=== PATIENT | female | born 1990 | race Caucasian/White ===

== ENCOUNTER 2016-10-23 08:44 | Outpatient (CLI) | payer MEDICAID ==
[2016-10-23 09:45] LABS: ABSOLUTE LYMPHOCYTES (AUTO) 1.5 10^3/uL (0.5-4.7); ABSOLUTE MONOCYTES (AUTO) 0.6 10^3/uL (0.1-1.4); ABSOLUTE NEUT (AUTO) 4.6 10^3/uL (1.7-8.2); BASOPHILS % (AUTO) 0.5 % (0-2); EOSINOPHILS % (AUTO) 0.7 % (0-6); HEMATOCRIT 37.2 % (36.0-47.0); HEMOGLOBIN 12.6 g/dL (12.0-15.5); HGB HCT DIFFERENCE 0.6; MEAN CORPUSCULAR HGB CONC 33.8 g/dL (32.0-36.0); MEAN CORPUSCULAR VOLUME 89 fl (80-97); RED BLOOD COUNT 4.19 10^6/uL (3.72-5.28); RED CELL DISTRIBUTION WIDTH 13.1 % (11.5-14.0); SEGMENTED NEUTROPHILS % (AUTO) 67.8 % (42-78); WHITE BLOOD COUNT 6.7 10^3/uL (4.0-10.5)
[2016-10-23 09:58] LABS: ALANINE AMINOTRANSFERASE 16 U/L (9-52); ALKALINE PHOSPHATASE 172 U/L (38-126); ANION GAP 9 (5-19); ASPARTATE AMINO TRANSFERASE 16 U/L (14-36); BILIRUBIN,TOTAL 0.5 mg/dL (0.2-1.3); BLOOD UREA NITROGEN 8 mg/dL (7-20); CALCIUM 9.4 mg/dL (8.4-10.2); CARBON DIOXIDE 23 mmol/L (22-30); CHLORIDE 105 mmol/L (98-107); CREATININE RESULT 0.75 mg/dL (0.52-1.25); GLUCOSE 74 mg/dL (75-110); LDH 422 U/L (313-618); POTASSIUM 4.2 mmol/L (3.6-5.0); SODIUM 137.4 mmol/L (137-145); TOTAL PROTEIN 7.5 g/dL (6.3-8.2); URIC ACID 5.8 mg/dL (2.5-6.2)
--- NOTE | 2016-10-23 10:01 | L&D Flow Sheet ---
LD Flowsheet Datetime Report Generated by CPN: 10/23/2016 10:00 Datetime: 10/23/2016 09:51 Vital Signs NBP Sys/Wen/Mean (mmHg): 127 (QS system process) : 93 (QS system process) : 105 (QS system process) Pulse: 64 (QS system process) Datetime: 10/23/2016 09:35 Vital Signs NBP Sys/Wen/Mean (mmHg): 130 (QS system process) : 82 (QS system process) : 102 (QS system process) Pulse: 59 (QS system process) Datetime: 10/23/2016 09:20 Vital Signs NBP Sys/Wen/Mean (mmHg): 126 (QS system process) : 77 (QS system process) : 97 (QS system process) Pulse: 60 (QS system process) Datetime: 10/23/2016 09:00 Pain Pain Scale: 0 (Bridger Antonieta, RN) Pain Presence: None/Denies (Bridger Antonieta, RN) Pain Type: N/A (Bridger Antonieta, RN) Vaginal Exam Membrane Status: Intact (Bridger Fung RN) Vaginal Bleeding: None (Bridger Fung RN) Maternal Assessment Level of Consciousness: Fully Conscious (Bridger Fung RN) Headache: Denies (Bridger Fung RN) Nausea/Vomiting: Hx of Nausea/Vomiting (Annotations: Pt states she threw up this morning, common occurance during duration of ) (Bridger Fung RN) RUQ Epigastric Pain: Denies (Bridger Fung RN)
[2016-10-23 10:39] LABS: APPEARANCE,URINE CLEAR; BILIRUBIN,URINE NEGATIVE (NEGATIVE); GLUCOSE, URINE NEGATIVE (NEGATIVE); KETONES,URINE NEGATIVE (NEGATIVE); LEUKOCYTE ESTERASE,URINE NEGATIVE (NEGATIVE); NITRITE,URINE NEGATIVE (NEGATIVE); PROTEIN,URINE NEGATIVE (NEGATIVE); URINE SPECIFIC GRAVITY 1.004; UROBILINOGEN,URINE NEGATIVE mg/dL (<2.0)
[2016-10-23 10:55] LABS: URINE BARBITURATES SCREEN NEGATIVE; URINE METHADONE SCREEN NEGATIVE; URINE OPIATES LOW NEGATIVE; URINE PHENCYCLIDINE SCREEN NEGATIVE
== END 2016-10-23 11:46 | disposition home or self-care (01) ==
LOC: LC 08:44
PROVIDERS: ATTEND Obstetrics & Gynecology
PROC: 4A1HXCZ Monitoring of Products of Conception, Cardiac Rate, External Approach (ICD-10-PCS; principal; 2016-10-23)
DX: O26.893 Other specified pregnancy related conditions, third trimester (principal); R11.2 Nausea with vomiting, unspecified; Z3A.39 39 weeks gestation of pregnancy
CPT/HCPCS: 36415; 59025; 80053; 80307; 81001; 83615; 84550; 85025

== ENCOUNTER 2016-11-03 08:38 | Inpatient (IN) | payer MEDICAID ==
[2016-11-05] MEDS ORDERED: OXYTOCIN/NORMAL SALINE 1,000 ML IV PRN (09:11)
[2016-11-05] MEDS ORDERED: RINGERS SOLUTION,LACTATED 300 ML IV ONE (09:11)
[2016-11-05] MEDS ORDERED: RINGERS SOLUTION,LACTATED 1,000 ML IV PRN (09:11)
--- NOTE | 2016-11-05 09:16 | Non Stress Test Report ---
Non Stress Test Datetime Report Generated by CPN: 11/05/2016 09:16 DEMOGRAPHIC EGA NST: 38.4 INDICATION Indication for Study: Gestational Hypertension VITAL SIGNS Temperature - NST: 97.6 RESP - NST: 18 MONITORING Monitor Explained: Monitor Explained; Test Explained; Patient Verbalized Understanding Time on Monitor: 10/23/2016 09:20 Time off Monitor: 10/23/2016 11:19 NST Duration: 119 NST INTERVENTIONS NST Interventions: PO Hydration; Reposition Patient Physician Notified NST: Janie Dalal, CNM BABY A: [id number] BABY A Movement : Present Contraction Frequency : Rare FHR Baseline : 130 Accelerations : 15X15 Decelerations : None Variability : Moderate 6-25bpm NST Review: Meets Criteria for Reactive NST NST Review and Verified By : Mason Umanzor RN NST Results: Reactive NST REPORT Report Trigger: Send Report
--- NOTE | 2016-11-05 10:00 | L&D Flow Sheet ---
LD Flowsheet Datetime Report Generated by CPN: 11/05/2016 10:00 Datetime: 11/05/2016 09:58 Vital Signs NBP Sys/Wen/Mean (mmHg): 108 (QS system process) : 92 (QS system process) : 97 (QS system process) Pulse: 87 (QS system process) Communication LaborFlag: Labor (QS system process) Datetime: 11/05/2016 09:43 Pain Pain Scale: 0 (Bridger Antonieta, RN) Pain Presence: None/Denies (Bridger Antonieta, RN) Pain Type: N/A (Bridger Antonieta, RN) Vaginal Exam Vaginal Bleeding: None (Bridger Nolanford, RN) Maternal Assessment Level of Consciousness: Fully Conscious (Bridger Antonieta, RN) Headache: Denies (Bridger Antonieta, RN) Nausea/Vomiting: Denies (Bridger Antonieta, RN) RUQ Epigastric Pain: Denies (Bridger Antonieta, RN) Communication LaborFlag: Labor (QS system process) Datetime: 11/05/2016 09:27 Vital Signs NBP Sys/Wen/Mean (mmHg): 125 (QS system process) : 76 (QS system process) : 95 (QS system process) Pulse: 76 (QS system process) Communication LaborFlag: Labor (QS system process)
[2016-11-05 10:24] LABS: APPEARANCE,URINE SLIGHTLY-CLOUDY; BILIRUBIN,URINE NEGATIVE (NEGATIVE); GLUCOSE, URINE NEGATIVE (NEGATIVE); KETONES,URINE NEGATIVE (NEGATIVE); LEUKOCYTE ESTERASE,URINE LARGE (NEGATIVE); NITRITE,URINE NEGATIVE (NEGATIVE); PROTEIN,URINE 30 mg/dL (NEGATIVE); URINE SPECIFIC GRAVITY 1.015; UROBILINOGEN,URINE NEGATIVE mg/dL (<2.0)
[2016-11-05 10:25] LABS: ABSOLUTE LYMPHOCYTES (AUTO) 1.3 10^3/uL (0.5-4.7); ABSOLUTE MONOCYTES (AUTO) 0.6 10^3/uL (0.1-1.4); ABSOLUTE NEUT (AUTO) 6.7 10^3/uL (1.7-8.2); BASOPHILS % (AUTO) 0.3 % (0-2); EOSINOPHILS % (AUTO) 0.4 % (0-6); HEMATOCRIT 35.2 % (36.0-47.0); HGB HCT DIFFERENCE 0.8; LYMPHOCYTES % (AUTO) 15.4 % (13-45); MEAN CORPUSCULAR HGB CONC 34.2 g/dL (32.0-36.0); MEAN CORPUSCULAR VOLUME 88 fl (80-97); MONOCYTES % (AUTO) 7.1 % (3-13); RED CELL DISTRIBUTION WIDTH 13.2 % (11.5-14.0); SEGMENTED NEUTROPHILS % (AUTO) 76.8 % (42-78); WHITE BLOOD COUNT 8.7 10^3/uL (4.0-10.5)
[2016-11-05] MEDS ORDERED: SUCCINYLCHOLINE CHLORIDE INJ 200 MG/10 ML VIAL ONE ×2 (10:25→22:17)
[2016-11-05] MEDS ORDERED: MISOPROSTOL 0.1 MG TABLET ONE ×2 (10:38→14:46)
[2016-11-05 10:48] LABS: URINE BARBITURATES SCREEN NEGATIVE; URINE METHADONE SCREEN NEGATIVE; URINE OPIATES LOW NEGATIVE; URINE PHENCYCLIDINE SCREEN NEGATIVE
[2016-11-05] MEDS ORDERED: MISOPROSTOL 0.1 MG TABLET PO ONE (11:00)
--- NOTE | 2016-11-05 12:00 | L&D Flow Sheet ---
LD Flowsheet Datetime Report Generated by CPN: 11/05/2016 12:00 Datetime: 11/05/2016 11:32 Patient Position/Activity: Right Tilt; Low Fowlers (Bridger Fung, LAKESHA) Datetime: 11/05/2016 11:30 Monitor Mode: External (Bridger Fung RN) Frequency (min): 1-5 (Bridger Fung RN) Quality: Mild (Bridegr Fung RN) Duration (sec): 50-90 (Bridger Antonieta, RN) Resting Tone (Palpate): Relaxed (Bridger Antonieta, RN) Monitor Mode: External US (Bridger Antonieta, RN) FHR Baseline Rate : 130 (Bridger Antonieta, RN) Variability: Minimal - Undetectable to <=5 bpm (Bridger Antonieta, RN) Variability: Moderate 6-25 bpm (Bridger Antonieta, RN) Accelerations: 15X15 (Bridger Antonieta, RN) Decelerations: None (Bridger Antonieta, RN) Datetime: 11/05/2016 11:00 Monitor Mode: External; Palpation (Bridger Antonieta, RN) Frequency (min): Irregular (Bridger Antonieta, RN) Quality: Mild (Bridger Antonieta, RN) Duration (sec): 60-120 (Bridger Antonieta, RN) Resting Tone (Palpate): Relaxed (Bridger Antonieta, RN) Monitor Mode: External US (Bridger Antonieta, RN) FHR Baseline Rate : 135 (Bridger Antonieta, RN) Variability: Moderate 6-25 bpm (Bridger Antonieta, RN) Accelerations: 15X15 (Bridger Antonieta, RN) Decelerations: None (Bridger Antonieta, RN) Datetime: 11/05/2016 10:58 I/O Interventions: Up to BR (Bridger Antonieta, RN) Datetime: 11/05/2016 10:57 NBP Sys/Wen/Mean (mmHg): 135 (QS system process) : 83 (QS system process) : 105 (QS system process) Pulse: 66 (QS system process) LaborFlag: Labor (QS system process) Datetime: 11/05/2016 10:47 Cervical Ripening Agents: Cytotec @ 50 mcg (Bridger Antonieta, RN) Medication Comments: Given PO (Bridgershanel Fung, RN) Datetime: 11/05/2016 10:30 Monitor Mode: External (Bridger Antonieta, RN) Frequency (min): Irregular (Bridger Antonieta, RN) Quality: Mild (Bridger Antonieta, RN) Duration (sec): 50-70 (Bridger Antonieta, RN) Resting Tone (Palpate): Relaxed (Bridger Antonieta, RN) Monitor Mode: External US (Bridger Antonieta, RN) FHR Baseline Rate : 140 (Bridger Antonieta, RN) FHR Baseline Changes: No Baseline Change (Bridger Antonieta, RN) Variability: Moderate 6-25 bpm (Bridger Antonieta, RN) Accelerations: 15X15 (Bridger Atnonieta, RN) Datetime: 11/05/2016 10:27 NBP Sys/Wen/Mean (mmHg): 132 (QS system process) : 88 (QS system process) : 106 (QS system process) Pulse: 68 (QS system process) LaborFlag: Labor (QS system process) Datetime: 11/05/2016 10:22 IV/Blood Work: IV Bolus Given ml @ 500; IV Infusing per Order (Bridger Fung RN) Datetime: 11/05/2016 10:20 Dilatation (cm): 1.5 (Bridger Fung RN) Effacement (%): 75 (Bridger Fung RN) Station: -1 (Bridger Fung RN) Exam by: LAKESHA Meng (Bridger Fung RN) Membrane Status: Intact (Bridger Fung RN) Vaginal Bleeding: None (Bridger Fung RN) Cervix, Consistency: Soft (Bridger Fung RN) Cervix, Position: Anterior (Bridger Fung RN) Datetime: 11/05/2016 10:00 Monitor Mode: External; Palpation (Bridger Fung RN) Monitor Mode: External (Bridger Fung RN) Frequency (min): Irregular (Bridger Fung RN) Quality: Mild (Bridger Fung RN) Duration (sec): 40-50 (Bridger Fung RN) Resting Tone (Palpate): Relaxed (Bridger Fung RN) IV/Blood Work: IV Started; IV Bolus Started (Bridger Fung RN)
--- NOTE | 2016-11-05 14:00 | L&D Flow Sheet ---
LD Flowsheet Datetime Report Generated by CPN: 11/05/2016 14:00 Datetime: 11/05/2016 13:30 Monitor Mode: External (Bridger Fung, RN) Quality: Mild (Bridger Fung, RN) Resting Tone (Palpate): Relaxed (Bridger Fung, RN) Contraction Comments: Unable to determine, RN adjusted TOCO (Bridger Fung, RN) Monitor Mode: External US (Bridger Fung, RN) FHR Baseline Rate : 135 (Bridger Fung, RN) Variability: Moderate 6-25 bpm (Bridger Fung, RN) Accelerations: 15X15 (Bridger Fung, RN) Datetime: 11/05/2016 13:00 Monitor Mode: External (Bridger Fung RN) Frequency (min): 1.5-5 (Bridger Fung, LAKESHA) Quality: Mild (Bridger Fung, RN) Duration (sec): 50-90 (Bridger Fung, RN) Resting Tone (Palpate): Relaxed (Bridger Fung RN) Monitor Mode: External US (Bridger Fung RN) FHR Baseline Rate : 135 (Bridger Fung, RN) Variability: Moderate 6-25 bpm (Bridger Fung, RN) Accelerations: 15X15 (Bridger Fung, RN) Datetime: 11/05/2016 12:30 Temperature (F): 98.0 (Bridger Fung RN) Temperature (C): 36.7 (QS system process) Temperature Route: Oral (Bridger Fung RN) Monitor Mode: External; Palpation (Bridger Fung RN) Quality: Mild (Bridger Fung RN) Resting Tone (Palpate): Relaxed (Bridger Fung, RN) Contraction Comments: Difficult to determine due to patient position while eating. RN at bedside, TOCO adjusted (Bridger Fung RN) Monitor Mode: External US (Bridger Fung RN) FHR Baseline Rate : 140 (Bridger Fung, RN) Variability: Moderate 6-25 bpm (Bridger Fung, RN) Accelerations: 15X15 (Bridger Fung, RN) Decelerations: None (Bridger Fung RN) Pain Presence: Intermittent (Bridger Fung RN) Pain Type: Cramping (Bridger Fung RN) Pain Location: Abdomen (Bridger Fung RN) Pain Relief Measures: Comfort Measures (Bridger Fung RN) Pain Coping: Talking Through Contractions (Bridger Fung RN) Comfort Measures: Family Support (Bridger Fung RN) LaborFlag: Labor (QS system process) Datetime: 11/05/2016 12:24 I/O Interventions: Up to BR (Bridger Fung RN) Datetime: 11/05/2016 12:11 Patient Care Comments: Meal Provided (Bridger Fung RN)
--- NOTE | 2016-11-05 16:01 | L&D Flow Sheet ---
LD Flowsheet Datetime Report Generated by CPN: 11/05/2016 16:00 Datetime: 11/05/2016 15:41 I/O Interventions: Up to BR (Bridger Fung RN) Datetime: 11/05/2016 15:00 Monitor Mode: External; Palpation (Bridger Fung RN) Frequency (min): Irregular (Bridger Fung RN) Quality: Mild (Bridger Fung RN) Duration (sec): 60-90 (Bridger Antonieta, RN) Resting Tone (Palpate): Relaxed (Bridger Antonieta, RN) Monitor Mode: External US (Bridger Fung, RN) FHR Baseline Rate : 140 (Bridger Antonieta, RN) Variability: Moderate 6-25 bpm (Bridger Antonieta, RN) Accelerations: 15X15 (Bridger Antonieta, RN) Datetime: 11/05/2016 14:50 Cervical Ripening Agents: Cytotec @ 0.05 mcg given PO (Bridger Fung, RN) Datetime: 11/05/2016 14:30 Monitor Mode: External (Bridger Antonieta, RN) Frequency (min): 3-5 (Bridger Antonieta, RN) Quality: Mild (Bridger Antonieta, RN) Duration (sec): 60-90 (Bridger Antonieta, RN) Resting Tone (Palpate): Relaxed (Bridger Antonieta, RN) Monitor Mode: External US (Bridger Antonieta, RN) FHR Baseline Rate : 140 (Bridger Antonieta, RN) Variability: Moderate 6-25 bpm (Bridger Antonieta, RN) Accelerations: 15X15 (Bridger Antonieta, RN) Decelerations: None (Bridger Fung RN) Datetime: 11/05/2016 14:00 Monitor Mode: External (Bridger Fung RN) Frequency (min): Irregular (Bridger Fung RN) Quality: Mild (Bridger Fung RN) Duration (sec): 60-90 (Bridger Fung RN) Resting Tone (Palpate): Relaxed (Bridger Fung RN) Monitor Mode: External US (Bridger Fung RN) FHR Baseline Rate : 130 (Bridger Fung RN) Variability: Moderate 6-25 bpm (Bridger Fung RN) Accelerations: 15X15 (Bridger Fung RN) Decelerations: None (Bridger Fung RN)
--- NOTE | 2016-11-05 18:01 | L&D Flow Sheet ---
LD Flowsheet Datetime Report Generated by CPN: 11/05/2016 18:00 Datetime: 11/05/2016 17:30 Monitor Mode: External; Palpation (Bridger Fung RN) Monitor Interventions for UA: [place] Adjusted (Bridger Fung RN) Frequency (min): 2-4 (Bridger Fung RN) Quality: Mild/Moderate (Bridger Fung RN) Duration (sec): 40-60 (Bridger Fung RN) Duration Criteria: Less than Two 120 Second Contractions (Bridger Fung RN) Pattern: Normal: <= 5 Contractions in 10 Minutes (Bridger Fung RN) Resting Tone (Palpate): Relaxed (Bridger Fung RN) Monitor Mode: External US; Auscultation (Bridger Fung RN) FHR Baseline Rate : 140 (Bridger Fung RN) FHR Baseline Changes: No Baseline Change (Bridger Fung RN) Variability: Moderate 6-25 bpm (Bridger Fung RN) Accelerations: 15X15 (Bridger Fung RN) Decelerations: None (Bridger Fung RN) Datetime: 11/05/2016 17:14 Pain Presence: Intermittent (Bridger Fung RN) Pain Type: Contraction (Bridger Fung RN) Pain Location: Abdomen (Bridger Fung RN) Pain Coping: Breathing Through Contractions (Bridger Fung RN) Comfort Measures: Breathing/Relaxation; Family Support (Bridger Fung RN) I/O Interventions: Ice Chips Given; Clear Liquids Given (Bridger Fung RN) LaborFlag: Labor (QS system process) Datetime: 11/05/2016 17:00 Monitor Mode: External; Palpation (Bridger Fung RN) Monitor Interventions for UA: [place] Adjusted (Bridger Fung RN) Frequency (min): 2-3 (Bridger Fung RN) Quality: Mild/Moderate (Bridger Fung RN) Duration (sec): 40-60 (Bridger Fung RN) Duration Criteria: Less than Two 120 Second Contractions (Bridger Fung RN) Pattern: Normal: <= 5 Contractions in 10 Minutes (Bridger Fung RN) Resting Tone (Palpate): Relaxed (Bridger Antonieta, RN) Monitor Mode: External US; Auscultation (Bridger Antonieta, RN) FHR Baseline Rate : 140 (Bridger Antonieta, RN) FHR Baseline Changes: No Baseline Change (Bridger Antonieta, RN) Variability: Moderate 6-25 bpm (Bridger Antonieta, RN) Accelerations: 15X15 (Bridger Antonieta, RN) Decelerations: None (Bridger Antonieta, RN) Datetime: 11/05/2016 16:59 Monitor Mode: External US (Bridger Antonieta, RN) FHR Baseline Rate : 135 (Bridger Antonieta, RN) Variability: Moderate 6-25 bpm (Bridger Antonieta, RN) Accelerations: 15X15 (Bridger Antonieta, RN) Decelerations: None (Bridger Antonieta, RN) Datetime: 11/05/2016 16:30 IV/Blood Work: New IV Bag Hung (Bridger Fung, RN) Patient Care Comments: New bag of LR hung at 125mL/hr (Bridger Fung, RN) Datetime: 11/05/2016 16:28 Monitor Mode: External US (Bridger Antonieta, RN) FHR Baseline Rate : 140 (Bridger Antonieta, RN) Variability: Moderate 6-25 bpm (Bridger Antonieta, RN) Accelerations: 10X10 (Bridger Antonieta, RN) Decelerations: None (Bridger Antonieta, RN) Datetime: 11/05/2016 16:21 I/O Interventions: Up to BR (Bridger Antonieta, RN) Datetime: 11/05/2016 16:14 Membrane Status: Ruptured (Bridger Antonieta, RN) Membranes Ruptured Date/Time: 11/05/2016 16:14 (ILSA Amaya) Membranes Rupture Method: Spontaneous (Bridger Fung RN) Amniotic Fluid Color: Clear (Bridger Fung RN) Amniotic Fluid Amount: Small (Bridger Fung RN) Amniotic Fluid Odor: Normal (Bridger Fung RN)
[2016-11-05] MEDS ORDERED: OXYTOCIN/NORMAL SALINE 20 UNIT/1,000 ML RTUINJ ONE (19:04)
[2016-11-05] MEDS ORDERED: LIDOCAINE 1% INJ-PF (10 MG/ML) 30 ML SDV ONE (19:04)
[2016-11-05] MEDS ORDERED: MISOPROSTOL 0.2 MG TABLET ONE (19:04)
--- NOTE | 2016-11-05 20:00 | L&D Flow Sheet ---
LD Flowsheet Datetime Report Generated by CPN: 11/05/2016 20:00 Datetime: 11/05/2016 19:30 Level of Consciousness: Fully Conscious (Bernadine Jaspreetichiello, RN) DTR's/Clonus: DTRs 2+; No Clonus (Bernadine Errichiello, RN) Headache: Denies (Bernadine Jaspreetichiello, RN) Breath Sounds, Left: Clear and Equal (Bernadine Jaspreetichiello, RN) Breath Sounds, Right: Clear and Equal (Bernadine Errichiello, RN) Nausea/Vomiting: Denies (Bernadine Errichiello, RN) RUQ Epigastric Pain: Denies (Bernadine Jaspreetichiello, RN) Datetime: 11/05/2016 19:15 Stage of : Recovery (Bernadine Errichiello, RN) Respirations: 16 (Bernadine Errichiello, RN) Temperature Route: Oral (Bernadine Errichiello, RN) Datetime: 11/05/2016 19:11 Stage of : Recovery (Bernadine Errichiello, RN) Datetime: 11/05/2016 19:06 Pushing Progress: with Pushing (Marcus Heather, RN) Datetime: 11/05/2016 19:05 Pushing: Coached on Pushing; Urge to Push (Marcus Romero, RN) Pushing Position: Pushing with Contractions; Pushing Lithotomy (Marcus Richardsont, RN) Pushing Progress: Pushing Effectively with Contractions (Marcus Richardsont, RN) Datetime: 11/05/2016 19:01 Preparation for Delivery: Perineal Prep Done; Setup for Delivery (Marcus Romero, RN) Communication Comments: Dr Ta at bedside (Marcus Heather, RN) Datetime: 11/05/2016 19:00 Monitor Mode: External (ILSA Amaya) Frequency (min): 1.5-3 (ILSA Amaya) Quality: Moderate to Strong (ILSA Amaya) Duration (sec): 60-90 (Betty Roosevelt, RNC) Duration Criteria: Less than Two 120 Second Contractions (Betty Albert, RNC) Pattern: Normal: <= 5 Contractions in 10 Minutes (Betty Albert, RNC) Resting Tone (Palpate): Relaxed (Betty Albert, RNC) Monitor Mode: External US (Betty Albert, RNC) FHR Baseline Rate : 145 (Betty Albert, RNC) Variability: Moderate 6-25 bpm (Betty Albert, RNC) Accelerations: 15X15 (Betty Albert, RNC) Decelerations: None (Betty Albert, RNC) Dilatation (cm): 10.0 (Marcus Romero, RN) Effacement (%): 100 (Marcus Romero RN) Station: 2 (Marcus Romero RN) Exam by: Noé RN (Marcus Romero RN) Datetime: 11/05/2016 18:50 Comments: RN at bedside adjusting monitor. (Bridger Fung RN) Datetime: 11/05/2016 18:44 Medication Comments: Recieved verbal order from Dr. Ta for epidural (Bridger Fung, LAKESHA) Datetime: 11/05/2016 18:30 Temperature (F): 99.0 (Bridger Fung, LAKESHA) Temperature (C): 37.2 (QS system process) Temperature Route: Oral (Bridger Fung, LAKESHA) Monitor Mode: External; Palpation (Betty Albert, RNC) Frequency (min): 1.5-3 (Betty Albert, RNC) Quality: Mild/Moderate (Betty Albert, RNC) Duration (sec): 60-90 (Betty Roosevelt, RNC) Duration Criteria: Less than Two 120 Second Contractions (Betty Roosevelt, RNC) Pattern: Normal: <= 5 Contractions in 10 Minutes (Betty Roosevelt, RNC) Resting Tone (Palpate): Relaxed (Betty Roosevelt, RNC) Monitor Mode: External US (Betty Albert, RNC) FHR Baseline Rate : 135 (Betty Roosevelt, RNC) Variability: Moderate 6-25 bpm (Betty Roosevelt, RNC) Accelerations: 15X15 (Betty Roosevelt, RNC) Decelerations: None (Betty Roosevelt, RNC) LaborFlag: Labor (QS system process) Datetime: 11/05/2016 18:03 Monitor Interventions for FHR: Ultrasound Adjusted (Mikki Rowe RN) Patient Position/Activity: Birthing Ball (Mikki Rowe RN) Communication: RN at Bedside (Mikki Rowe RN) Datetime: 11/05/2016 18:00 Monitor Mode: External; Palpation (Shirley Camp, RNC) Monitor Interventions for UA: [place] Adjusted (Shirley Camp, RNC) Frequency (min): 2-3 (Shirley Camp, RNC) Quality: Mild/Moderate (Shirley Camp, RNC) Duration (sec): 60-80 (Shirley Camp, RNC) Duration Criteria: Less than Two 120 Second Contractions (Shirley Camp, RNC) Pattern: Normal: <= 5 Contractions in 10 Minutes (Shirley Camp, RNC) Resting Tone (Palpate): Relaxed (Shirley Camp, RNC) Monitor Mode: External US; Auscultation (Shirley Camp, RNC) FHR Baseline Rate : 145 (Shirley Camp, RNC) FHR Baseline Changes: No Baseline Change (Shirley Camp, RNC) Variability: Moderate 6-25 bpm (Shirley Camp, RNC) Decelerations: None (Shirley Camp, RNC)
[2016-11-05] MEDS ORDERED: ACETAMINOPHEN WITH CODEINE #3 TABLET ONE (20:53)
[2016-11-05] MEDS ORDERED: IBUPROFEN 800 MG TABLET ONE (20:54)
[2016-11-05] MEDS ORDERED: METHYLERGONOVINE MALEATE INJ/PF 0.2 MG/1 ML AMPULE ONE (21:24)
[2016-11-05] MEDS ORDERED: MORPHINE SULFATE 10 MG/ML INJ ONE (21:58)
--- NOTE | 2016-11-05 22:07 | Delivery Summary ---
Del Sum A-C Datetime Report Generated by CPN: 11/05/2016 22:06 ADMISSION DATA Chief Complaint: Scheduled Induction of Labor Indication for Induction: Post Dates Admission Impression: Term, Intrauterine ; No Active Labor; Intact Membranes DELIVERY PERSONNEL Delivery Doctor:: Gulshan Ta, DO Labor and Delivery Nurse:: Bridger Fung RNdrum drier operator Nurse:: Betty Ablert RN Nursery Nurse:: Familia Umanzor RN Narrow Fabric Calenderer/SOLVENT PLANT OPERATOR: Guan[place]ito [place]amo CNA Narrow Fabric Calenderer/SOLVENT PLANT OPERATOR: Isaura Ben, [facility] Additional Personnel: : Angela Guerra, RN MATERNAL INFORMATION Delivery Anesthesia: None Medications After Delivery: Pitocin Bolus-Please Comment Meds After Delivery Comment: Pitocin 20 units in 1000ml nss open for bolus Estimated Blood Loss (ml): 300 Maternal Complications: Precipitous Labor (<3hrs) Provider Comments: of viable female in LANI position Placentra delievered spontaneous and intact with 3v cord Fundus firm LABOR SUMMARY EDC: 10/29/2016 00:00 No. Babies in Womb: 1 Attempted: No Labor Anesthesia: None LABOR INFORMATION Reason for Induction: Post Dates Onset of Labor: 11/05/2016 16:14 Complete Dilatation: 11/05/2016 19:00 Cervical Ripening Agents: Cytotec @ (Annotations: 50) Oxytocin: N/A Group B Beta Strep: Neg Steroids Given: None Reason Steroids Not Administered: Not Applicable MEMBRANES Membranes Rupture Method: Spontaneous Rupture of Membranes: 11/05/2016 16:14 Length of Rupture (hr): 2.92 Amniotic Fluid Color: Clear Amniotic Fluid Amount: Small Amniotic Fluid Odor: Normal STAGES OF LABOR Stage 1 hr: 2 Stage 1 min: 46 Stage 2 hr: 0 Stage 2 min: 9 Stage 3 hr: 0 Stage 3 min: 2 Total Time in Labor hr: 2 Total Time in Labor min: 57 VAGINAL DELIVERY Episiotomy: None Laceration Extension: Third Degree Laceration Type: Periurethral Laceration Repair: Yes Laceration Repair Note: b/l periurethral lacs repaired with 2-0 chromic in usual fashion with good hemostasis Sponge Count Correct: Yes Sharps Count Correct: Yes CSECTION DELIVERY Primary Indication: N/A Secondary Indication: N/A CSection Incidence: N/A Labor: N/A Elective: N/A CSection Incision: N/A BABY A INFORMATION Infant Delivery Date/Time: 11/05/2016 19:09 Method of Delivery: Vaginal Born in Route : No : N/A Forceps: N/A Vacuum Extraction: N/A Shoulder Dystocia : No PRESENTATION/POSITION BABY A Presentation: Cephalic Cephalic Presentation: Vertex Vertex Position: Left Occipital Anterior Breech Presentation: N/A PLACENTA INFORMATION BABY A Placenta Delivery Time : 11/05/2016 19:11 Placenta Method of Delivery: Spontaneous Placenta Status: Delivered SCORES BABY A Heart Rate 1 min: >100 bpm Resp Effort 1 min: Good Cry Reflex Irritability 1 min: Cough or Sneeze or Pulls Away Muscle Tone 1 min: Active Motion Color 1 min: Body [place], Extremities Blue Resuscitation Effort 1 min: Tactile Stimulation SCORE 1 MIN: 9 Heart Rate 5 min: >100 bpm Resp Effort 5 min: Good Cry Reflex Irritability 5 min: Cough or Sneeze or Pulls Away Muscle Tone 5 min: Active Motion Color 5 min: Body [place], Extremities Blue Resuscitation Effort 5 min: N/A SCORE 5 MIN: 9 Resuscitation Effort 10 min: N/A INFANT INFORMATION BABY A Gestational Age at Delivery: 41.0 Gestational Status: Late Term- 41- 41.6 Weeks Outcome : Liveborn Condition : Stable Infant Sex: Female IDENTIFICATION BABY A Verification Date/Time: 11/05/2016 19:16 ID Band Number: [id number] Mother's Name Verified: Yes Infant RN Verifying Infant: Shirley Camp RNC Additional Verifying Personnel: D Lori US WEIGHT/LENGTH BABY A Infant Birthweight (gm): 3005 Weight (lb): 6 Weight (oz): 10 Length (in): 19.00 Infant Length (cm): 48.26 CORD INFORMATION BABY A No. Cord Vessels: 3 Nuchal Cord : N/A Cord Blood Taken: Yes-For Eval (Mom's Blood Type - or O+) Suction: Mouth; Nose ASSESSMENT BABY A Complications: None Physical Findings at Delivery: Within Normal Limits Infant Respirations: Appears Normal Skin to Skin: Yes Shank Pinner/ALS Called : No Care By: Familia Umanzor RN Transferred To: Remains with Mother BABY B INFORMATION : N/A SIGNATURES Signature: with User ID: [email or web address]
[2016-11-05] MEDS ORDERED: CEFAZOLIN 2 GM/D5W RTU 2 GM/50 ML RTUPB IV ONE (22:15)
[2016-11-05] MEDS ORDERED: CITRIC ACID/SODIUM CITRATE ORAL SOLN 15 ML UDCUP ONE (22:15)
[2016-11-05] MEDS ORDERED: FENTANYL CITRATE INJ/PF 100 MCG/2 ML AMPUL ONE (22:17)
[2016-11-05] MEDS ORDERED: PROPOFOL INJ 200 MG/20 ML VIAL IV ONE (22:17)
[2016-11-05] MEDS ORDERED: MIDAZOLAM 2 MG/2 ML INJ ONE (22:23)
[2016-11-05] MEDS ORDERED: CITRIC ACID/SODIUM CITRATE ORAL SOLN 15 ML UDCUP PO ONE (22:34)
[2016-11-06] MEDS ORDERED: DIPHENHYDRAMINE HCL 25 MG CAPSULE PO PRN (00:47)
[2016-11-06] MEDS ORDERED: NA PHOS,M-B/NA PHOS,DI-BA (ADULT) 133 ML ENEMA PR PRN (00:47)
[2016-11-06] MEDS ORDERED: ACETAMINOPHEN WITH CODEINE #3 TABLET PO PRN ×2 (00:47)
[2016-11-06] MEDS ORDERED: BENZOCAINE/MENTHOL AEROSOL SPRAY 56 ML TOP PRN (00:47)
[2016-11-06] MEDS ORDERED: DIBUCAINE 1% OINTMENT 28 GM TP PRN (00:47)
[2016-11-06] MEDS ORDERED: GLYCERIN/WITCH HAZEL LEAF 1 EACH MED..PAD TP PRN (00:47)
[2016-11-06] MEDS ORDERED: ACETAMINOPHEN 650 MG SUPP.RECT PR PRN (00:47)
[2016-11-06] MEDS ORDERED: MEASLES,MUMPS&RUBELLA VACC/PF 0.5 ML VIAL SUBCUT PRN (00:47)
[2016-11-06] MEDS ORDERED: PROMETHAZINE HCL 25 MG SUPP.RECT PR PRN (00:47)
[2016-11-06] MEDS ORDERED: PROMETHAZINE HCL 25 MG TABLET PO PRN (00:47)
[2016-11-06] MEDS ORDERED: PROMETHAZINE HCL INJ 25 MG/1 ML VIAL IV PRN (00:47)
[2016-11-06] MEDS ORDERED: PSEUDOEPHEDRINE HCL 30 MG TABLET PO PRN (00:47)
[2016-11-06] MEDS ORDERED: MAGNESIUM HYDROXIDE SUSP 30 ML UDCUP PO PRN (00:47)
[2016-11-06] MEDS ORDERED: ZOLPIDEM TARTRATE 5 MG TABLET PO PRN (00:47)
[2016-11-06] MEDS ORDERED: DIPH/PERTUSS(ACELL)/TETANUS VAC/PF 0.5 ML SYR (>=10YO) IM PRN (00:47)
--- NOTE | 2016-11-06 01:32 | Admission Physical ---
Datetime Report Generated by CPN: 11/06/2016 01:31 CURRENT ADMISSION Chief Complaint: Scheduled Induction of Labor Indication for Induction: Post Dates Admit Plan: Admit to Unit; Initiate Labor Induction Protocol ALLERGIES Medication Allergies: No Medication Allergies: No Known Allergies (03/10/2016) Latex: No Latex Allergies Food Allergies: None Environmental Allergies: None OBSTETRICAL HISTORY EDC: 10/29/2016 00:00 : 1 Para: 0 Para: 0 Term: 0 : 0 SAB: 0 IAB: 0 Ectopic: 0 Livin Cesareans: 0 VBACs: 0 Multiple Births: 0 Gestational Diabetes: No Rh Sensitization: Unknown Incompetent Cervix: No IAN: Unknown Infertility: No ART Treatment: No Uterine Anomaly: Unknown IUGR: No Hx Previous C/S: Unknown Macrosomia: No Hx Loss/Stillborn: No PIH: Unknown Hx : Unknown Placenta Previa/Abruption: Unknown Depression/PP Depression: No PTL/PROM: Unknown Post Hemorrhage: Unknown Current Procedures: Ultrasound Obstetrical History Comments: patient sent from office for pre-eclampsia work up SEE RECORDS Alcohol: No Alcohol Frequency: Occasional Advised to Stop: Yes Marijuana : No Cocaine: No Other Illicit Drugs: No Cigarettes: Former Smoker. [id number] MEDICAL HISTORY Diabetes: No Blood Transfusion: No Pulmonary Disease (Asthma, TB): No Breast Disease: No Hypertension: No Audit Intern Surgery: No Heart Disease: No Hosp/Surgery: Yes Autoimmune Disorder: No Anesthetic Complications: No Kidney Disease: No Abnormal Pap Smear: No Neuro/Epilepsy: No Psychiatric Disorders: No Other Medical Diseases: No Hepatitis/Liver Disease: No Significant Family History: No Varicosities/Phlebitis: No Trauma/Violence : No Thyroid Dysfunction: No Medical History Comments: Removal of lesions on legs, age 13 INFECTIOUS HISTORY Gonorrhea: No Genital Herpes: No Chlamydia: No Tuberculosis: No Syphilis: No Hepatitis: No HIV/AIDS Exposure: No Rash or Viral Illness: No HPV: No PHYSICAL EXAM General: Normal HEENT: Normal Neurologic: Normal Thyroid: Deferred Heart: Normal Lungs: Normal Breast: Deferred Back: Normal Abdomen: Normal Genitourinary Exam: Normal Extremities: Normal DTRs: Normal Pelvic Type: Adequate Vital Signs: Reviewed; Within Normal Limits VAGINAL EXAM Dilatation: 1 Effacement: 75 Station: -1 MEMBRANES Membranes: Intact FETUS A EGA: 41.0 Monitoring: External US FHR- Baseline: 140 Variability: Moderate 6-25bpm Accelerations: 15X15 Decelerations: None FHR Category: Category I PLANS FOR LABOR AND DELIVERY Labor and Delivery: None Pain Management: Epidural Feeding Preference: Breast Benefit of Breast Feed Discussed: Yes Circumcision: N/A INFORMED CONSENT Signature: with User ID: [email or web address]
[2016-11-06] MEDS ORDERED: CEFAZOLIN 2 GM/D5W RTU 2 GM/50 ML RTUPB IV SCH ×2 (02:00→06:00)
[2016-11-06] MEDS: IBUPROFEN 800 MG TABLET PO SCH ×3 (05:20→21:31)
[2016-11-06] MEDS ORDERED: RINGERS SOLUTION,LACTATED 500 ML IV ONE (07:00)
--- NOTE | 2016-11-06 07:01 | L&D Flow Sheet ---
LD Flowsheet Datetime Report Generated by CPN: 11/06/2016 07:00 Datetime: 11/06/2016 00:18 NBP Sys/Wen/Mean (mmHg): 128 (QS system process) : 73 (QS system process) : 94 (QS system process) Pulse: 75 (QS system process) Datetime: 11/06/2016 00:17 Pulse: 78 (QS system process) SpO2 (%): 100 (QS system process) Datetime: 11/06/2016 00:12 Pulse: 74 (QS system process) SpO2 (%): 100 (QS system process) Datetime: 11/06/2016 00:07 Pulse: 80 (QS system process) SpO2 (%): 98 (QS system process) Datetime: 11/06/2016 00:05 NBP Sys/Wen/Mean (mmHg): 129 (QS system process) : 76 (QS system process) : 97 (QS system process) Pulse: 76 (QS system process) Datetime: 11/06/2016 00:02 Pulse: 85 (QS system process) SpO2 (%): 99 (QS system process) Datetime: 11/05/2016 23:57 Pulse: 73 (QS system process) SpO2 (%): 100 (QS system process) Datetime: 11/05/2016 23:52 Pulse: 88 (QS system process) SpO2 (%): 100 (QS system process) Datetime: 11/05/2016 23:50 NBP Sys/Wen/Mean (mmHg): 127 (QS system process) : 76 (QS system process) : 95 (QS system process) Pulse: 72 (QS system process) Datetime: 11/05/2016 23:47 Pulse: 78 (QS system process) SpO2 (%): 97 (QS system process) Datetime: 11/05/2016 23:42 Pulse: 76 (QS system process) SpO2 (%): 98 (QS system process) Datetime: 11/05/2016 23:37 Pulse: 76 (QS system process) SpO2 (%): 97 (QS system process) Datetime: 11/05/2016 23:35 NBP Sys/Wen/Mean (mmHg): 124 (QS system process) : 74 (QS system process) : 93 (QS system process) Pulse: 81 (QS system process) Respirations: 18 (Bernadine Nagel RN) Temperature (F): 98.9 (Bernadine Nagel RN) Temperature (C): 37.2 (QS system process) Temperature Route: Oral (Bernadine Nagel RN) Pain Scale: 1 (Bernadine Nagel RN) Pain Location: Perineum (Bernadine Nagel RN) Pain Assessment Comments: Pt states is just basically sore in perineal area. (Bernadine Nagel RN) Datetime: 11/05/2016 23:32 Pulse: 79 (QS system process) SpO2 (%): 97 (QS system process) Datetime: 11/05/2016 23:27 Pulse: 79 (QS system process) SpO2 (%): 97 (QS system process) Datetime: 11/05/2016 23:22 Pulse: 108 (QS system process) SpO2 (%): 97 (QS system process) Datetime: 11/05/2016 23:19 NBP Sys/Wen/Mean (mmHg): 125 (QS system process) : 73 (QS system process) : 94 (QS system process) Pulse: 80 (QS system process) Datetime: 11/05/2016 23:18 Stage of : Recovery (Bernadine Nagel RN) Temperature (F): 98.4 (Bernadine Nagel RN) Temperature (C): 36.9 (QS system process) Datetime: 11/05/2016 23:17 Stage of : Recovery (Bernadine Nagel RN) Pulse: 98 (QS system process) SpO2 (%): 99 (QS system process) Temperature (F): 98.9 (Bernadine Nagel RN) Temperature (C): 37.2 (QS system process) Pain Scale: 0 (Bernadine Nagel RN) Pain Presence: None/Denies (Bernadine Errichiello, RN) Pain Type: N/A (Bernadine Jaspreetichiello, RN) Datetime: 11/05/2016 21:30 Stage of : Recovery (Bernadine Oviedoello, RN) Respirations: 16 (Bernadine Jaspreetichiello, RN) Pain Scale: 0 (Bernadine Errichiello, RN) Pain Presence: None/Denies (Bernadine Errichiello, RN) Pain Type: N/A (Bernadine Errichiello, RN) Datetime: 11/05/2016 21:15 Stage of : Recovery (Bernadine Jaspreetichiello, RN) Pain Scale: 0 (Bernadine Errichiello, RN) Pain Presence: None/Denies (Bernadine Errichiello, RN) Pain Type: N/A (Bernadine Errichiello, RN) Datetime: 11/05/2016 21:07 NBP Sys/Wen/Mean (mmHg): 128 (QS system process) : 75 (QS system process) : 95 (QS system process) Pulse: 80 (QS system process) Datetime: 11/05/2016 21:00 Stage of : Recovery (Bernadine Nagel RN) Pain Scale: 3 (Bernadine Nagel RN) Pain Presence: Intermittent (Bernadine Nagel RN) Pain Type: Ache (Bernadine Nagel RN) Pain Location: Abdomen (Bernadine Nagel RN) Pain Goal: 1 (Bernadine Nagel RN) Datetime: 11/05/2016 20:51 NBP Sys/Wen/Mean (mmHg): 120 (QS system process) : 62 (QS system process) : 86 (QS system process) Pulse: 84 (QS system process) Datetime: 11/05/2016 20:45 Stage of : Recovery (Bernadine Nagel RN) Pain Scale: 0 (Bernadine Nagel RN) Pain Presence: None/Denies (Bernadine Nagel RN) Pain Type: N/A (Bernadine Nagel RN) Datetime: 11/05/2016 20:36 NBP Sys/Wen/Mean (mmHg): 123 (QS system process) : 75 (QS system process) : 94 (QS system process) Pulse: 73 (QS system process) Datetime: 11/05/2016 20:30 Stage of : Recovery (Bernadine Nagel RN) Pain Scale: 0 (Bernadine Nagel RN) Pain Presence: None/Denies (Bernadine Nagel RN) Pain Type: N/A (Bernadine Nagel RN) Datetime: 11/05/2016 20:21 NBP Sys/Wen/Mean (mmHg): 122 (QS system process) : 77 (QS system process) : 95 (QS system process) Pulse: 84 (QS system process) Datetime: 11/05/2016 20:15 Stage of : Recovery (Bernadine Nagel RN) Pain Scale: 0 (Bernadine Nagel RN) Pain Presence: None/Denies (Bernadine Nagel RN) Pain Type: N/A (Bernadine Errichiello, RN) Datetime: 11/05/2016 20:00 Stage of : Recovery (Bernadine Jaspreetichiello, RN) Pain Scale: 0 (Bernadine Jaspreetichiello, RN) Pain Presence: None/Denies (Bernadine Errichiello, RN) Pain Type: N/A (Bernadine Errichiello, RN) Datetime: 11/05/2016 19:45 Stage of : Recovery (Bernadine Errichiello, RN) Respirations: 16 (Bernadine Errichiello, RN) Pain Scale: 0 (Bernadine Errichiello, RN) Pain Presence: None/Denies (Bernadine Errichiello, RN) Pain Type: N/A (Bernadine Errichiello, RN) Datetime: 11/05/2016 19:30 Stage of : Recovery (Bernadine Nagel RN) Respirations: 16 (Bernadine Nagel RN) Pain Scale: 0 (Bernadine Nagel RN) Pain Presence: None/Denies (Bernadine Nagel RN) Pain Type: N/A (Bernadine Nagel, RN) Level of Consciousness: Fully Conscious (Bernadine Nagel RN) DTR's/Clonus: DTRs 2+; No Clonus (Bernadine Nagel RN) Headache: Denies (Bernadine Nagel RN) Breath Sounds, Left: Clear and Equal (Bernadine Nagel RN) Breath Sounds, Right: Clear and Equal (Bernadine Nagel RN) Nausea/Vomiting: Denies (Bernadine Nagel RN) RUQ Epigastric Pain: Denies (Bernadine Nagel, RN) Datetime: 11/05/2016 19:15 Stage of : Recovery (Bernadine Nagel RN) Respirations: 16 (Bernadine Nagel RN) Temperature Route: Oral (Bernadine Nagel, RN) Pain Scale: 0 (Bernadine Nagel RN) Pain Presence: None/Denies (Bernadine Nagel, RN) Pain Type: N/A (Bernadine Shona, RN) Datetime: 11/05/2016 19:11 Stage of : Recovery (Bernadine Errichiello, RN) Datetime: 11/05/2016 19:06 Pushing Progress: with Pushing (Marcus Richardsont, RN) Datetime: 11/05/2016 19:05 Pushing: Coached on Pushing; Urge to Push (Marcus Romero RN) Pushing Position: Pushing with Contractions; Pushing Lithotomy (Marcus Romero RN) Pushing Progress: Pushing Effectively with Contractions (Marcus Romero, RN) Datetime: 11/05/2016 19:01 Preparation for Delivery: Perineal Prep Done; Setup for Delivery (Marcus Romero RN) Communication Comments: Dr Ta at bedside (Marcus Romero RN) Datetime: 11/05/2016 19:00 Monitor Mode: External (ILSA Amaya) Frequency (min): 1.5-3 (ILSA Amaya) Quality: Moderate to Strong (ILSA Amaya) Duration (sec): 60-90 (ILSA Amaya) Duration Criteria: Less than Two 120 Second Contractions (ILSA Amaya) Pattern: Normal: <= 5 Contractions in 10 Minutes (ILSA Amaya) Resting Tone (Palpate): Relaxed (ILSA Amaya) Monitor Mode: External US (ILSA Amaya) FHR Baseline Rate : 145 (ILSA Amaya) Variability: Moderate 6-25 bpm (Betty Roosevelt, RNC) Accelerations: 15X15 (Betty Albert RNC) Decelerations: None (ILSA Amaya) Dilatation (cm): 10.0 (Marcus Romero RN) Effacement (%): 100 (Marcus Romero RN) Station: 2 (Marcus Romero RN) Exam by: Noé CROWDER (Marcus Romero RN)
[2016-11-06 07:29] LABS: HGB HCT DIFFERENCE 0.2; MEAN CORPUSCULAR HEMOGLOBIN 29.9 pg (27.0-33.4); MEAN CORPUSCULAR HGB CONC 33.6 g/dL (32.0-36.0); MEAN CORPUSCULAR VOLUME 89 fl (80-97); RED BLOOD COUNT 2.47 10^6/uL (3.72-5.28); RED CELL DISTRIBUTION WIDTH 13.2 % (11.5-14.0)
[2016-11-06 07:40] LABS: HEMOGLOBIN 7.4 g/dL (12.0-15.5)
[2016-11-06] MEDS: FERROUS SULFATE 325 MG TABLET PO SCH ×2 (09:34→17:44)
[2016-11-06] MEDS: DOCUSATE SODIUM 100 MG CAPSULE PO SCH ×2 (09:34→17:44)
[2016-11-06] MEDS: FAMOTIDINE 20 MG TABLET PO SCH ×2 (09:35→21:32)
[2016-11-06] MEDS: SENNOSIDES/DOCUSATE 8.6-50 MG 1 EACH TABLET PO SCH (09:35)
[2016-11-06] MEDS: PRENATAL VITAMIN W-O CA NO5/FE FUMARATE/FA CAPSULE PO SCH (09:35)
--- NOTE | 2016-11-06 13:42 | PDOC PROGRESS REPORT ---
Subjective-OB Subjective: Post Delivery Day:1 26 year old. Denies any needs at this time, leo still in place, has not been up yet, coping with pain, lochia is stable. Physical Exam (OB) Vital Signs: Temp Pulse Resp BP Pulse Ox 98.2 F 87 14 114/64 100 11/06/16 07:47 11/06/16 07:47 11/06/16 07:47 11/06/16 07:47 11/06/16 07:47 Intake & Output 11/05/16 11/06/16 11/07/16 06:59 06:59 06:59 Output Total 300 Balance -300 Weight 84.25 kg - Lochia Lochia Amount: Small 10-25 ml Lochia Color: Rubra/Red - Abdomen Description: Tender, Soft Hernia Present: No Fundal Description: Firm, Midline Fundal Height: u/u - u/2 Objective-Diagnostic Laboratory: 11/06/16 07:12 11/06/16 07:12 WBC 15.0 H RBC 2.47 L Hgb 7.4 L D Hct 22.0 L MCV 89 MCH 29.9 MCHC 33.6 RDW 13.2 Plt Count 122 L Assessment and Plan(PN) - Assessment and Plan (1) Vaginal delivery Is this a current diagnosis for this admission?: YesPlan: routine pp care (2) Vaginal laceration Is this a current diagnosis for this admission?: YesPlan: repaired (3) Acute blood loss anemia Is this a current diagnosis for this admission?: YesPlan: ferrous sulfate increase dietary iron (4) hemorrhage Is this a current diagnosis for this admission?: Yes - Time Spent with Patient Time with patient: Less than 15 minutes Critical Time spent with patient: Less than 15 minutes Medications reviewed and adjusted accordingly: Yes - Disposition Anticipated Discharge: Home Within: within 24 hours
--- NOTE | 2016-11-06 18:02 | L&D General Admission ---
General Admit Datetime Report Generated by CPN: 11/06/2016 18:00 INFORMATION Patient Age: 26 (10/16/2016 08:38:QS system process) EDC: 10/29/2016 00:00 (10/23/2016 08:36:Mikki Rowe RN) LMP: 01/23/2016 00:00 (10/23/2016 08:36:Bridgre Fung RN) : 1 (10/23/2016 08:36:Bridger Fung RN) Para: 0 (10/23/2016 11:30:ILSA Young) Term: 0 (10/23/2016 08:36:Bridger Fung RN) : 0 (10/23/2016 08:36:Bridger Fung RN) Spontaneous Abortions: 0 (10/23/2016 08:36:Bridger Fung RN) Induced Abortions: 0 (10/23/2016 08:36:Bridger Fung RN) Livin (10/23/2016 08:36:Bridger Fung RN) Cesareans: 0 (10/23/2016 08:36:Bridger Fung RN) VBACs: 0 (10/23/2016 08:36:Bridger Fung RN) Ectopic: 0 (10/23/2016 08:36:Bridger Fung RN) Multiple Births: 0 (10/23/2016 08:36:Bridger Fung RN) Baby, Number in Womb: 1 (10/23/2016 11:30:ILSA Young) CARE Primary Air Traffic Supervisor: [employer] (10/23/2016 08:36:Bridger Fung RN) Month of 1st Visit: May (10/23/2016 08:36:Bridger Fung RN) Adequate Care: Yes (10/23/2016 08:36:Bridger Fung RN) Prepregnancy Weight (lb): 177 (10/23/2016 08:36:Bridger Fung RN) Prepregnancy Weight (kg): 80.5 (10/23/2016 08:36:QS system process) Height (in): 63 (11/06/2016 01:31:QS system process) ALLERGIES Medication Allergy: No (10/23/2016 08:36:Bridger Fung RN) Medication Allergies: No Known Allergies (03/10/2016) (10/16/2016 08:38:QS system process) Latex Allergy: No Latex Allergies (10/23/2016 08:36:Wanda Dillon RN) Food Allergies: None (10/23/2016 08:36:Bridger Fung RN) Environmental Allergies: None (10/23/2016 08:36:Bridger Fung RN) COMMUNICATION Primary Language: Guamanian (10/23/2016 08:36:Bridger Fung RN) Medical Tx Preferred Language: Guamanian (10/23/2016 08:36:Bridger Fung RN) DEMOGRAPHICS Address: [address] [place] [id number] (10/16/2016 08:38:QS system process) Zipcode: [address] (10/16/2016 08:38:QS system process) Home (10/16/2016 08:38:QS system process) SSN: [id number] (10/16/2016 08:38:QS system process) Next of Kin Name: ANNIE CRUZ (10/16/2016 08:38:QS system process) Next of Kin (10/23/2016 08:44:QS system process) Next of Kin Relationship: MO (10/16/2016 08:38:QS system process) Date of : 1990 (10/16/2016 08:38:QS system process) Marital Status: Single (10/16/2016 08:38:QS system process) Sex: Female (10/16/2016 08:38:QS system process) Race: (10/16/2016 08:38:QS system process) Ethnicity: Non- or (10/16/2016 08:38:QS system process) Lutheran: None (10/16/2016 08:38:QS system process) DRUG AND ALCOHOL USE Alcohol: No (10/23/2016 08:36:Bridger Fung RN) Average Alcohol Consumption: Occasional (10/23/2016 08:36:Bridger Fung RN) Advised to Stop Alcohol: Yes (10/23/2016 08:36:Bridger Fung RN) Cigarettes: Former Smoker. [id number] (10/23/2016 08:36:Bridger Fung RN) Marijuana: No (10/23/2016 08:36:Bridger Fung RN) Cocaine: No (10/23/2016 08:36:Bridger Fung RN) Other Illicit Drugs: No (10/23/2016 08:36:Bridger Fung RN) VACCINE HISTORY Influenza Vaccine: No (10/23/2016 08:36:Bridger Fung RN) Pneumococcal Vaccine: No (10/23/2016 08:36:Bridger Fung RN) Tetanus Vaccine: Uncertain (10/23/2016 08:36:Bridger Fung RN) Tdap Vaccine: Uncertain (10/23/2016 08:36:Bridger Fung RN) Hepatitis B Vaccine: Uncertain (10/23/2016 08:36:Bridger Fung RN) Public Safety Officer: [facility] (10/23/2016 08:36:Bridger Fung RN) Feeding Preference: Breast (10/23/2016 08:36:Bridger Fung RN) Benefit of Breast Feed Discussed: Yes (10/23/2016 08:36:Bridger Fung RN) Circumcision: N/A (10/23/2016 08:36:Bridger Fung RN) Classes Attended: No (10/23/2016 08:36:Bridger Fung RN) Tubal Ligation: No (10/23/2016 08:36:Bridger Fung RN) Tubal Authorization Signed: N/A (10/23/2016 08:36:Bridger Fung RN) Consent: N/A (10/23/2016 08:36:Bridger Fung RN) Consent Signed: N/A (10/23/2016 08:36:Bridger Fung RN) Pain Management Plans: Epidural (10/23/2016 08:36:Bridger Fung RN) Plans for Labor and Delivery: None (10/23/2016 08:36:Bridger Fung RN) Support Person: Matt Buitrago (10/23/2016 08:36:Bridger Fung RN) Support Person Relationship: Significant Other (10/23/2016 08:36:Bridger Fung RN) Cultural/Spritual Practice: No (10/23/2016 08:36:Bridger Fung RN) Spir/Cult Dietary Needs: No (10/23/2016 08:36:Bridger Fung RN) LIVING SITUATION/DISCHARGE PLAN Living Arrangements: House (10/23/2016 08:36:Bridger Fung RN) Adequate Access to:: Electric; Heat; Refrigeration; Plumbing/Running water; Phone; Transportation (10/23/2016 08:36:Bridger Fung RN) WIC Program: Yes (10/23/2016 08:36:Bridger Fung RN) Discharge Inter Com Installer Person: Matt Buitrago (10/23/2016 08:36:Bridger Fung RN) Person to Help after Discharge: Matt Buitrago (10/23/2016 08:36:Bridger Fung RN) Currently Using Commun Resources: Yes (10/23/2016 08:36:Bridger Fung RN) Specify Current Resource Used: Medicaid (10/23/2016 08:36:Bridger Fung RN) Outside Agency/Records Management Specialist: No (10/23/2016 08:36:Bridger Fung RN) Car Seat for Discharge: Yes (10/23/2016 08:36:Bridger Fung RN) Adoption Requested: No (10/23/2016 08:36:Bridger Fung RN) Pt Contact w/ Post : N/A (10/23/2016 08:36:Bridger Fung RN) LABS Blood Type: O Positive (10/23/2016 08:36:Bridger Fung RN) Antibody Screen: negative (10/23/2016 08:36:Mikki Rowe RN) Hemoglobin: 7.4 L (Annotations: VERBAL RESULT GIVEN TO TYRESE HERNANDEZ RN AT 0738 11/06/16 BY STANLEY SPANN. VERIFIED BY READ BACK.) (11/06/2016 07:12:QS system process) Hematocrit: 22.0 L (11/06/2016 07:12:QS system process) MCV: 89 (11/06/2016 07:12:QS system process) Group Beta Strep: Neg (10/23/2016 08:36:Bridger Fung RN) Gonorrhea: Negative (10/23/2016 08:36:Bridger Fung RN) Chlamydia: Negative (10/23/2016 08:36:Bridger Fung RN) RPR/VDRL: Nonreactive (10/23/2016 08:36:Bridger Fung RN) HIV Exposure Test: Negative (10/23/2016 08:36:Bridger Fung RN) Hepatitis B: Negative (10/23/2016 08:36:Bridger Fung RN) Rubella: Immune (10/23/2016 08:36:Bridger Fung RN) OB/PREVIOUS HISTORY Age of Menses Onset: 16 (10/23/2016 08:36:Bridger Fung RN) Mensus Frequency: 28 (10/23/2016 08:36:Bridger Fung RN) Menses Duration: 6 (10/23/2016 08:36:Bridger Fung RN) Menses Amount: Moderate (10/23/2016 08:36:Bridger Fung RN) LMP Regular: Yes (10/23/2016 08:36:Bridger Fung RN) Date Pos Preg Test: 03/03/2016 00:00 (10/23/2016 08:36:Bridger Fung RN) BCP at Conception: No (10/23/2016 08:36:Bridger Fung RN) LMP: 01/23/2016 00:00 (10/23/2016 08:36:Bridger Fung RN) Previous Procedures: None (10/23/2016 08:36:Bridger Fung RN) Current Procedures: Ultrasound (10/23/2016 08:36:Bridger Fung RN) History of Previous : Unknown (10/23/2016 08:36:Bridger Fung RN) History of Gestational Diabetes: No (10/23/2016 08:36:Bridger Fung RN) History of PIH: Unknown (10/23/2016 08:36:Bridger Fung RN) History of Incompetent Cervix: No (10/23/2016 08:36:Bridger Fung RN) History of Placenta Previa/Abrup: Unknown (10/23/2016 08:36:Bridger Fung RN) History of Macrosomia: No (10/23/2016 08:36:Bridger Fung RN) History of IUGR: No (10/23/2016 08:36:Bridger Fung RN) History of Hemorrhage: Unknown (10/23/2016 08:36:Bridger Fung RN) History of Loss/Stillborn: No (10/23/2016 08:36:Bridger Fung RN) History of : Unknown (10/23/2016 08:36:Bridger Fung RN) History of D (Rh) Sensitization: Unknown (10/23/2016 08:36:Bridger Fung RN) History Recurrent Loss/Stillborn: No (10/23/2016 08:36:Bridger Fung RN) History Depression/PP Depression: No (10/23/2016 08:36:Bridger Fung RN) History of Uterine Anomaly/IAN: Unknown (10/23/2016 08:36:Bridger Fung RN) History of Infertility: No (10/23/2016 08:36:Bridger Fung RN) History of ART Treatment: No (10/23/2016 08:36:Bridger Fung RN) History of IAN: Unknown (10/23/2016 08:36:Bridger Fung RN) Comments Obstetrical History: patient sent from office for pre-eclampsia work up (10/23/2016 08:36:Mikki Rowe RN) MEDICAL HISTORY Med Hx Diabetes: No (10/23/2016 08:36:Bridger Fung RN) Med Hx Hypertension: No (10/23/2016 08:36:Bridger Fung RN) Med Hx Heart Disease: No (10/23/2016 08:36:Bridger Fung RN) Med Hx Autoimmune Disorder: No (10/23/2016 08:36:Bridger Fung RN) Med Hx Kidney Disease/UTI: No (10/23/2016 08:36:Bridger Fung RN) Med Hx Neurologic/Epilepsy: No (10/23/2016 08:36:Bridger Fung RN) Med Hx Psychiatric Disorders: No (10/23/2016 08:36:Bridger Fung RN) Med Hx Hepatitis/Liver Disease: No (10/23/2016 08:36:Bridger Fung RN) Med Hx Varicosities/Phlebitis: No (10/23/2016 08:36:Bridger Fung RN) Med Hx Thyroid Dysfunction: No (10/23/2016 08:36:Bridger Fung RN) Med Hx Trauma/Violence: No (10/23/2016 08:36:Bridger Fung RN) Med Hx Blood Transfusion: No (10/23/2016 08:36:Bridger Fung RN) Med Hx Pulmonary (Asthma,TB): No (10/23/2016 08:36:Bridger Fung RN) Med Hx Breast: No (10/23/2016 08:36:Bridger Fung RN) Med Hx LOCKSTITCH LINING MAKER Surgery: No (10/23/2016 08:36:Bridger Fung RN) Med Hx Hospitalization/Surgery: Yes (10/23/2016 08:36:Bridger Fung RN) Med Hx Anesthetic Complications: No (10/23/2016 08:36:Bridger Fung RN) Med Hx Abnormal Pap Smear: No (10/23/2016 08:36:Bridger Fung RN) Other Medical Diseases: No (10/23/2016 08:36:Bridger Fung RN) Med Hx Significant Family Hx: No (10/23/2016 08:36:Bridger Fung RN) Details of Med/Surg Hx: Removal of lesions on legs, age 13 (10/23/2016 08:36:Bridger Antonieta, RN) INFECTIOUS HISTORY Inf Hx Gonorrhea: No (10/23/2016 08:36:Bridger Fung RN) Inf Hx Chlamydia: No (10/23/2016 08:36:Bridger Fung RN) Inf Hx Syphilis: No (10/23/2016 08:36:Bridger Fung RN) Inf Hx HIV/AIDS: No (10/23/2016 08:36:Bridger Fung RN) Inf Hx Human Papilloma Virus: No (10/23/2016 08:36:Bridger Fung RN) Inf Hx Pt/Partner Genital Herpes: No (10/23/2016 08:36:Bridger Fung RN) Inf Hx Tuberculosis/Exposure: No (10/23/2016 08:36:Bridger Fnug RN) Inf Hx Hepatitis B,C: No (10/23/2016 08:36:Bridger Fung RN) Inf Hx Rash or Viral Illness: No (10/23/2016 08:36:Bridger uFng RN) GENETIC HISTORY Gen Hx Age >=35 at [place]: No (10/23/2016 08:36:Bridger Fung RN) Gen Hx Thalassemia: No (10/23/2016 08:36:Bridger Fung RN) Gen Hx Congenital Heart Defect: No (10/23/2016 08:36:Bridger Fung RN) Gen Hx Neural Tube Defect: No (10/23/2016 08:36:Bridger Fung RN) Gen Hx Down's Syndrome: No (10/23/2016 08:36:Bridger Fung RN) Gen Hx Daniel-Sachs: No (10/23/2016 08:36:Bridger Fung RN) Gen Hx Ramírez: No (10/23/2016 08:36:Bridger Fung RN) Gen Hx Familial Dysautonomia: No (10/23/2016 08:36:Bridger Fung RN) Gen Hx Sickle Cell Disease/Trait: No (10/23/2016 08:36:Bridger Fung RN) Gen Hx Hemophilia/Blood Disorder: No (10/23/2016 08:36:Bridger Fung RN) Gen Hx Muscular Dystrophy: No (10/23/2016 08:36:Bridger Fung RN) Gen Hx Cystic Fibrosis: No (10/23/2016 08:36:Bridger Fung RN) Gen Hx Huntingtons Chorea: No (10/23/2016 08:36:Bridger Fung RN) Gen Hx Mental Retardation/Autism: No (10/23/2016 08:36:Bridger Fung RN) Gen Hx Tested for Fragile X: No (10/23/2016 08:36:Bridger Fung RN) Gen Hx Other Inher/Chromosomal: No (10/23/2016 08:36:Bridger Fung RN) Gen Hx Maternal Metabolic DO: No (10/23/2016 08:36:Bridger Fung RN) Gen Hx Pt Father or FOB Defect: No (10/23/2016 08:36:Bridger Fung RN) Gen Hx Other Genetic History: No (10/23/2016 08:36:Bridger Fung RN) Gen Hx Drugs/Meds since LMP: No (10/23/2016 08:36:Bridger Fung RN) Gen Hx Medications: Yes, vitamins. Generic Nyquil, Phenergan, Ele capsules (10/23/2016 08:36:Bridger Fung RN)
--- NOTE | 2016-11-06 18:16 | L&D Care Plan ---
LD CARE PLANS Datetime Report Generated by CPN: 11/06/2016 18:15 Datetime: 11/05/2016 07:39 Pain State: Risk For (Bridger Fung RN) Related To: Labor and Delivery Process; Treatment and Procedures; Post (Bridger Fung RN) Goal(s): Patients Pain will be Assessed and Managed; Patient will Verbalize Adequate Relief of Pain or the Ability to [place] with Current Pain (Bridger Fung RN) Interventions: Assess Pain Severity on Scale of 0 (None) to 5 (Severe); Assess Type, Location and Intensity of Pain Each Time Client Reports Discomfort and Notify Provider if Unusal Pain Develops; Encourage Proper Breathing and Relaxation Techniques; Offer Alternatives Such as Repositioning, Calm Environment, Massages, Diversional Activities, Ice Pack, Splinting, and Ambulation; Administer Analgesics as Ordered; Assist with Epidural Placement as Appropriate; Evaluate Therapeutic Effectiveness of Medication and Treatments (Bridger Fung RN) Outcome: Patient will Report Absence or Relief of Pain Consistent with Established Pain Goal (Bridger Fung RN) Outcome: Patient will have a Decrease in Signs and Symptoms of Discomfort (Bridger Fung RN) Outcome: Pain will be Controlled During Procedures (Bridger Fung RN) Anxiety State: Risk For (Bridger Fung RN) Related To: Labor and Delivery Process; Fear of Unknown; Medical Interventions (Bridger Fung RN) Goal(s): Patient will have Decreased Anxiety and be able to Function at Acceptable Levels (Bridger Fung RN) Interventions: Assess Verbal and Nonverbal Behavioral Indicators of Anxiety; Assist Patient to Identify and Verbalize Symptoms of Anxiety; Identify and Demonstrate Techniques to Control Anxiety; Assist Patient with Coping Mechanisms to Manage Anxiety; Provide Theraputic Touch for the Patient; Explain to Patient, Using a Calm Reassuring Approach and Nonmedical Terms, All Activities, Procedures, and Concerns; Instruct Patient and Family about Post Discharge Care, Limitations, Symptoms to Report and Resources Available (Bridger Fung RN) Outcome: Patient will Identify, Verbalize and Demonstrate Techniques to Control Anxiety (Bridger Fung RN) Outcome: Patient's Posture, Facial Expressions, Gestures and Activity Level will Reflect Decreased Anxiety (Bridger Fung RN) Outcome: Patient will Verbalize a Sense of Control and/or Acceptance of the Situation (Bridger Fung RN) Outcome: Patient will Identify and Utilize Support Person (Bridger Fung RN) Knowledge Deficit State: Actual (Bridger Fung RN) Related To: Labor and Delivery Process; Treatment and Procedures; Impending Alterations in Family Dynamics; Feeding and Infant Care; Community Resources and Available Support Mechanisms (Bridger Fung RN) Goal(s): Patient will Accurately Verbalize Understanding of Plan of Care and Treatment; Patient and Family will Accurately Verbalize Understanding of the Disease Process (Bridger Fung RN) Infection State: Risk For (Bridger Fung RN) Related To: Surgical Procedures; Prolonged Labor or Induction; Invasive Procedures (Bridger Fung RN) Goal(s): The Patient will be Free of Infection, Vital Signs Stable and Lab Work within Normal Parameters (Bridger Fung RN) Interventions: Instruct and Reinforce Proper Handwashing, Hygiene, and Care Techniques to Patient and Family; Monitor Vital Signs; Monitor Patient for the Following Signs of Infection: Fever, Abdominal Tenderness, Unusual Discharge; Monitor Aminiotic Fluid, Urine and Lochia for Color and Odor; Observe Wounds, Incisions and Invasive Line Sites for Redness, Drainage and Edema; Assess IV Sites per Hospital Policy; Monitor Lab and Test Results and Notify Provider of Abnormal Findings; Assess Nutritional Status and Promote Good Nutrition (Bridger Fung, LAKESHA) Outcome: Patient will Remain Free of Infection (Bridger Fung RN) Outcome: Infection will be Recognized Early to Allow for Prompt Treatment (Bridger Fung RN) Outcome: Patient will have Vital Signs Within Expected Range (Bridger Fung RN)
--- NOTE | 2016-11-07 06:01 | L&D General Admission ---
General Admit Datetime Report Generated by CPN: 11/07/2016 06:00 INFORMATION Patient Age: 26 (10/16/2016 08:38:QS system process) EDC: 10/29/2016 00:00 (10/23/2016 08:36:Mikki Rowe RN) LMP: 01/23/2016 00:00 (10/23/2016 08:36:Bridger Fung RN) : 1 (10/23/2016 08:36:Bridger Fung RN) Para: 0 (10/23/2016 11:30:ILSA Young) Term: 0 (10/23/2016 08:36:Bridger Fung RN) : 0 (10/23/2016 08:36:Bridger Fung RN) Spontaneous Abortions: 0 (10/23/2016 08:36:Bridger Fung RN) Induced Abortions: 0 (10/23/2016 08:36:Bridger Fung RN) Livin (10/23/2016 08:36:Bridger Fung RN) Cesareans: 0 (10/23/2016 08:36:Bridger Fung RN) VBACs: 0 (10/23/2016 08:36:Bridger Fung RN) Ectopic: 0 (10/23/2016 08:36:Bridger Fung RN) Multiple Births: 0 (10/23/2016 08:36:Bridger Fung RN) Baby, Number in Womb: 1 (10/23/2016 11:30:ILSA Young) CARE Primary Consultant Nurse: [facility] (10/23/2016 08:36:Bridger Fung RN) Month of 1st Visit: May (10/23/2016 08:36:Bridger Fung RN) Adequate Care: Yes (10/23/2016 08:36:Bridger Fung RN) Prepregnancy Weight (lb): 177 (10/23/2016 08:36:Bridger Fung RN) Prepregnancy Weight (kg): 80.5 (10/23/2016 08:36:QS system process) Height (in): 63 (11/06/2016 01:31:QS system process) ALLERGIES Medication Allergy: No (10/23/2016 08:36:Bridger Fung RN) Medication Allergies: No Known Allergies (03/10/2016) (10/16/2016 08:38:QS system process) Latex Allergy: No Latex Allergies (10/23/2016 08:36:Wanda Dillon RN) Food Allergies: None (10/23/2016 08:36:Bridger Fung RN) Environmental Allergies: None (10/23/2016 08:36:Bridger Fung RN) COMMUNICATION Primary Language: Namibian (10/23/2016 08:36:Bridger Fung RN) Medical Tx Preferred Language: Namibian (10/23/2016 08:36:Bridger Fung RN) DEMOGRAPHICS Address: [address] [place] [id number] (10/16/2016 08:38:QS system process) Zipcode: [address] (10/16/2016 08:38:QS system process) Home (10/16/2016 08:38:QS system process) SSN: [id number] (10/16/2016 08:38:QS system process) Next of Kin Name: ANNIE CRUZ (10/16/2016 08:38:QS system process) Next of Kin (10/23/2016 08:44:QS system process) Next of Kin Relationship: MO (10/16/2016 08:38:QS system process) Date of : 1990 (10/16/2016 08:38:QS system process) Marital Status: Single (10/16/2016 08:38:QS system process) Sex: Female (10/16/2016 08:38:QS system process) Race: (10/16/2016 08:38:QS system process) Ethnicity: Non- or (10/16/2016 08:38:QS system process) Yarsani: None (10/16/2016 08:38:QS system process) DRUG AND ALCOHOL USE Alcohol: No (10/23/2016 08:36:Bridger Fung RN) Average Alcohol Consumption: Occasional (10/23/2016 08:36:Bridger Fung RN) Advised to Stop Alcohol: Yes (10/23/2016 08:36:Bridger Fung RN) Cigarettes: Former Smoker. [id number] (10/23/2016 08:36:Bridger Fung RN) Marijuana: No (10/23/2016 08:36:Bridger Fung RN) Cocaine: No (10/23/2016 08:36:Bridger Fung RN) Other Illicit Drugs: No (10/23/2016 08:36:Bridger Fung RN) VACCINE HISTORY Influenza Vaccine: No (10/23/2016 08:36:Bridger Fung RN) Pneumococcal Vaccine: No (10/23/2016 08:36:Bridger Fung RN) Tetanus Vaccine: Uncertain (10/23/2016 08:36:Bridger Fung RN) Tdap Vaccine: Uncertain (10/23/2016 08:36:Bridger Fung RN) Hepatitis B Vaccine: Uncertain (10/23/2016 08:36:Bridger Fung RN) Authorization Representative: [facility] (10/23/2016 08:36:Bridger Fung RN) Feeding Preference: Breast (10/23/2016 08:36:Bridger Fung RN) Benefit of Breast Feed Discussed: Yes (10/23/2016 08:36:Bridger Fung RN) Circumcision: N/A (10/23/2016 08:36:Bridger Fung RN) Classes Attended: No (10/23/2016 08:36:Bridger Fung RN) Tubal Ligation: No (10/23/2016 08:36:Bridger Fung RN) Tubal Authorization Signed: N/A (10/23/2016 08:36:Bridger Fung RN) Consent: N/A (10/23/2016 08:36:Bridger Fung RN) Consent Signed: N/A (10/23/2016 08:36:Bridger Fung RN) Pain Management Plans: Epidural (10/23/2016 08:36:Bridger Fung RN) Plans for Labor and Delivery: None (10/23/2016 08:36:Bridger Fung RN) Support Person: Matt Buitrago (10/23/2016 08:36:Bridger Fung RN) Support Person Relationship: Significant Other (10/23/2016 08:36:Bridger Fung RN) Cultural/Spritual Practice: No (10/23/2016 08:36:Bridger Fung RN) Spir/Cult Dietary Needs: No (10/23/2016 08:36:Bridger Fung RN) LIVING SITUATION/DISCHARGE PLAN Living Arrangements: House (10/23/2016 08:36:Bridger Fung RN) Adequate Access to:: Electric; Heat; Refrigeration; Plumbing/Running water; Phone; Transportation (10/23/2016 08:36:Bridger Fung RN) WIC Program: Yes (10/23/2016 08:36:Bridger Fung RN) Discharge Planning Consultant Person: Matt Buitrago (10/23/2016 08:36:Bridger Fung RN) Person to Help after Discharge: Matt Buitrago (10/23/2016 08:36:Bridger Fung RN) Currently Using Commun Resources: Yes (10/23/2016 08:36:Bridger Fung RN) Specify Current Resource Used: Medicaid (10/23/2016 08:36:Bridger Fung RN) Outside Agency/Senior Executive Compensation Analyst: No (10/23/2016 08:36:Bridger Fung RN) Car Seat for Discharge: Yes (10/23/2016 08:36:Bridger Fung RN) Adoption Requested: No (10/23/2016 08:36:Bridger Fung RN) Pt Contact w/ Post : N/A (10/23/2016 08:36:Bridger Fung RN) LABS Blood Type: O Positive (10/23/2016 08:36:Bridger Fung RN) Antibody Screen: negative (10/23/2016 08:36:Mikki Rowe RN) Hemoglobin: 7.4 L (Annotations: VERBAL RESULT GIVEN TO TYRESE HERNANDEZ RN AT 0738 11/06/16 BY STANLEY SPANN. VERIFIED BY READ BACK.) (11/06/2016 07:12:QS system process) Hematocrit: 22.0 L (11/06/2016 07:12:QS system process) MCV: 89 (11/06/2016 07:12:QS system process) Group Beta Strep: Neg (10/23/2016 08:36:Bridger Fung RN) Gonorrhea: Negative (10/23/2016 08:36:Bridger Fung RN) Chlamydia: Negative (10/23/2016 08:36:Bridger Fung RN) RPR/VDRL: Nonreactive (10/23/2016 08:36:Bridger Fung RN) HIV Exposure Test: Negative (10/23/2016 08:36:Bridger Fung RN) Hepatitis B: Negative (10/23/2016 08:36:Bridger Fung RN) Rubella: Immune (10/23/2016 08:36:Bridger Fung RN) OB/PREVIOUS HISTORY Age of Menses Onset: 16 (10/23/2016 08:36:Bridger Fung RN) Mensus Frequency: 28 (10/23/2016 08:36:Bridger Fung RN) Menses Duration: 6 (10/23/2016 08:36:Bridger Fung RN) Menses Amount: Moderate (10/23/2016 08:36:Bridger Fung RN) LMP Regular: Yes (10/23/2016 08:36:Bridger Fung RN) Date Pos Preg Test: 03/03/2016 00:00 (10/23/2016 08:36:Bridger Fung RN) BCP at Conception: No (10/23/2016 08:36:Bridger Fung RN) LMP: 01/23/2016 00:00 (10/23/2016 08:36:Bridger Fung RN) Previous Procedures: None (10/23/2016 08:36:Bridger Fung RN) Current Procedures: Ultrasound (10/23/2016 08:36:Bridger Fung RN) History of Previous : Unknown (10/23/2016 08:36:Bridger Fung RN) History of Gestational Diabetes: No (10/23/2016 08:36:Bridger Fung RN) History of PIH: Unknown (10/23/2016 08:36:Bridger Fung RN) History of Incompetent Cervix: No (10/23/2016 08:36:Bridger Fung RN) History of Placenta Previa/Abrup: Unknown (10/23/2016 08:36:Bridger Fung RN) History of Macrosomia: No (10/23/2016 08:36:Bridger Fung RN) History of IUGR: No (10/23/2016 08:36:Bridger Fung RN) History of Hemorrhage: Unknown (10/23/2016 08:36:Bridger Fung RN) History of Loss/Stillborn: No (10/23/2016 08:36:Bridger Fung RN) History of : Unknown (10/23/2016 08:36:Bridger Fung RN) History of D (Rh) Sensitization: Unknown (10/23/2016 08:36:Bridger Fung RN) History Recurrent Loss/Stillborn: No (10/23/2016 08:36:Bridger Fung RN) History Depression/PP Depression: No (10/23/2016 08:36:Bridger Fung RN) History of Uterine Anomaly/IAN: Unknown (10/23/2016 08:36:Bridger Fung RN) History of Infertility: No (10/23/2016 08:36:Bridger Fung RN) History of ART Treatment: No (10/23/2016 08:36:Bridger Fung RN) History of IAN: Unknown (10/23/2016 08:36:Bridger Fung RN) Comments Obstetrical History: patient sent from office for pre-eclampsia work up (10/23/2016 08:36:Mikki Rowe RN) MEDICAL HISTORY Med Hx Diabetes: No (10/23/2016 08:36:Bridger Fung RN) Med Hx Hypertension: No (10/23/2016 08:36:Bridger Fung RN) Med Hx Heart Disease: No (10/23/2016 08:36:Bridger Fung RN) Med Hx Autoimmune Disorder: No (10/23/2016 08:36:Bridger Fung RN) Med Hx Kidney Disease/UTI: No (10/23/2016 08:36:Bridger Fung RN) Med Hx Neurologic/Epilepsy: No (10/23/2016 08:36:Bridger Fung RN) Med Hx Psychiatric Disorders: No (10/23/2016 08:36:Bridger Fung RN) Med Hx Hepatitis/Liver Disease: No (10/23/2016 08:36:Bridger Fung RN) Med Hx Varicosities/Phlebitis: No (10/23/2016 08:36:Bridger Fung RN) Med Hx Thyroid Dysfunction: No (10/23/2016 08:36:Bridger Fung RN) Med Hx Trauma/Violence: No (10/23/2016 08:36:Bridger Fung RN) Med Hx Blood Transfusion: No (10/23/2016 08:36:Bridger Fung RN) Med Hx Pulmonary (Asthma,TB): No (10/23/2016 08:36:Bridger Fung RN) Med Hx Breast: No (10/23/2016 08:36:Bridger Fung RN) Med Hx DENTAL THERAPIST Surgery: No (10/23/2016 08:36:Bridger Fung RN) Med Hx Hospitalization/Surgery: Yes (10/23/2016 08:36:Bridger Fnug RN) Med Hx Anesthetic Complications: No (10/23/2016 08:36:Bridger Fung RN) Med Hx Abnormal Pap Smear: No (10/23/2016 08:36:Bridger Fung RN) Other Medical Diseases: No (10/23/2016 08:36:Bridger Fung RN) Med Hx Significant Family Hx: No (10/23/2016 08:36:Bridger Fung RN) Details of Med/Surg Hx: Removal of lesions on legs, age 13 (10/23/2016 08:36:Bridger Antonieta, RN) INFECTIOUS HISTORY Inf Hx Gonorrhea: No (10/23/2016 08:36:Bridger Fung RN) Inf Hx Chlamydia: No (10/23/2016 08:36:Bridger Fung RN) Inf Hx Syphilis: No (10/23/2016 08:36:Bridger Fung RN) Inf Hx HIV/AIDS: No (10/23/2016 08:36:Bridger Fung RN) Inf Hx Human Papilloma Virus: No (10/23/2016 08:36:Bridger Fung RN) Inf Hx Pt/Partner Genital Herpes: No (10/23/2016 08:36:Bridger Fung RN) Inf Hx Tuberculosis/Exposure: No (10/23/2016 08:36:Bridger Fung RN) Inf Hx Hepatitis B,C: No (10/23/2016 08:36:Bridger Fung RN) Inf Hx Rash or Viral Illness: No (10/23/2016 08:36:Bridger Fung RN) GENETIC HISTORY Gen Hx Age >=35 at [place]: No (10/23/2016 08:36:Bridger Fung RN) Gen Hx Thalassemia: No (10/23/2016 08:36:Bridger Fung RN) Gen Hx Congenital Heart Defect: No (10/23/2016 08:36:Bridger Fung RN) Gen Hx Neural Tube Defect: No (10/23/2016 08:36:Bridger Fung RN) Gen Hx Down's Syndrome: No (10/23/2016 08:36:Bridger Fung RN) Gen Hx Daniel-Sachs: No (10/23/2016 08:36:Bridger Fung RN) Gen Hx Ramírez: No (10/23/2016 08:36:Bridger Fung RN) Gen Hx Familial Dysautonomia: No (10/23/2016 08:36:Bridger Fung RN) Gen Hx Sickle Cell Disease/Trait: No (10/23/2016 08:36:Bridger Fung RN) Gen Hx Hemophilia/Blood Disorder: No (10/23/2016 08:36:Bridger Fung RN) Gen Hx Muscular Dystrophy: No (10/23/2016 08:36:Bridger Fung RN) Gen Hx Cystic Fibrosis: No (10/23/2016 08:36:Bridger Fung RN) Gen Hx Huntingtons Chorea: No (10/23/2016 08:36:Bridger Fung RN) Gen Hx Mental Retardation/Autism: No (10/23/2016 08:36:Bridger Fung RN) Gen Hx Tested for Fragile X: No (10/23/2016 08:36:Bridger Fung RN) Gen Hx Other Inher/Chromosomal: No (10/23/2016 08:36:Bridger Fung RN) Gen Hx Maternal Metabolic DO: No (10/23/2016 08:36:Bridger Fung RN) Gen Hx Pt Father or FOB Defect: No (10/23/2016 08:36:Bridger Fung RN) Gen Hx Other Genetic History: No (10/23/2016 08:36:Bridger Fung RN) Gen Hx Drugs/Meds since LMP: No (10/23/2016 08:36:Bridger Fung RN) Gen Hx Medications: Yes, vitamins. Generic Nyquil, Phenergan, Ele capsules (10/23/2016 08:36:Bridger Fung RN)
--- NOTE | 2016-11-07 06:01 | L&D Current Admission ---
Current Admit Datetime Report Generated by CPN: 11/07/2016 06:00 ADMISSION INFORMATION Current Admit Date/Time: 11/05/2016 09:23 (11/05/2016 09:23:Bridger Fung RN) Reason for Admission: Induction of Labor (11/05/2016 09:23:Bridger Fung RN) Other Reason for Admission: [facility] admitted her for HTN in office (10/23/2016 09:00:Bridger Fung RN) Chief Complaint: Scheduled Induction of Labor (11/05/2016 09:43:Bridger Fung RN) Medications During : Vitamin; Ondansetron (Zofran) (11/05/2016 09:23:Bridger Fung RN) Meds During -Oth: Nyquil Liquid (11/05/2016 09:23:Bridger Fung RN) EGA per Dates: 41.0 (11/05/2016 09:23:QS system process) Method of Arrival: Ambulatory (11/05/2016 09:23:Bridger Fung RN) Admitted From: Home (11/05/2016 09:23:Bridger Fung RN) Reason for Induction: Postterm (11/05/2016 09:23:Bridger Fung RN) Records Available: Yes (11/05/2016 09:43:Bridger Fung RN) General Admission Information: Reviewed (11/05/2016 09:43:Bridger Fung RN) General Admission Reviewed By: LAKESHA Meng (11/05/2016 09:43:Bridger Fung RN) BELONGINGS/ADVANCED DIRECTIVES Valuables/Personal Effects: Purse/Wallet; Cell Phone; Jewelry (11/05/2016 09:23:Bridger Fung RN) Disposition of Belongings: Kept with Patient (11/05/2016 09:23:Bridger Fung RN) Advance Direct for Healthcare: No, and Wants No Information (11/05/2016 09:23:Bridger Fung RN) Durable Power of Assistant News Director: No (11/05/2016 09:23:Bridger Fung RN) Living Will: No (11/05/2016 09:23:Bridger Fung RN) Organ Donor: Yes (11/05/2016 09:23:Bridger Fung RN) Pt Rights Information Given: Yes (11/05/2016 09:23:Bridger Fung RN) Pt Understands Pt Rights: Yes (11/05/2016 09:23:Bridger Fung RN) LEARNING ASSESSMENT Knowledge Level: Understands L_D Process; Understands Care Activities; Had Pre-Hospital Education; Understands Diagnosis (11/05/2016 09:23:Bridger Fung RN) Barriers to Learning: None (11/05/2016 09:23:Bridger Fung RN) Learning Readiness: Motivated (11/05/2016 09:23:Bridger Fung RN) Learns Best By: 1 to 1 Instruction; Reading; Videos; Group Discussion; Demonstration (11/05/2016 09:23:Bridger Fung RN) Learning Needs: Labor and Delivery Process; Pain Management; Symptoms to Report; Treatment Plan; Medication; Diagnosis; Nutrition; Equipment; Care (11/05/2016 09:23:Bridger Fung RN) DOMESTIC VIOLANCE SCREENING Dom Viol Threatened/Hurt: No (11/05/2016 09:23:Bridger Fung RN) Hx of Abuse/Neglect past 2yrs: No (11/05/2016 09:23:Bridger Fung RN) Feel Unsafe Going Home: No (11/05/2016 09:23:Bridger Fung RN) Addt'l Observ Indicating Abuse: No (10/23/2016 09:00:Bridger Fung RN) Considered Personal Harm/Suicide: No (11/05/2016 09:23:Bridger Fung RN) NUTRITIONAL/FUNCTIONAL SCREENING Problem with Appetite >5 Days: No (11/05/2016 09:23:Bridger Fung RN) Chew/Swallow Difficulties: No (11/05/2016 09:23:Bridger Fung RN) Inappropriate Wt Gain/Loss: No (11/05/2016 09:23:Bridger Fung RN) Presence Skin Breakdown/Ulcer: No (11/05/2016 09:23:Bridger Fung RN) Special Diet: No (11/05/2016 09:23:Bridger Fung RN) Pt Requests Veterinary Technician Instructor Visit: No (11/05/2016 09:23:Bridger Fung RN) Hx of Any of the Following?: N/A (11/05/2016 09:23:Bridger Fung RN) New Diagnosis of: N/A (11/05/2016 09:23:Bridger Fung RN) Requires Assist w/Ambulation: No (11/05/2016 09:23:Bridger Fung RN) Uses Assist Device to Ambulate: No (11/05/2016 09:23:Bridger Fung RN) Pt Requires Help w/ADL's: No (11/05/2016 09:23:Bridger Fung RN)
[2016-11-07] MEDS: IBUPROFEN 800 MG TABLET PO SCH (06:37)
[2016-11-07 07:32] LABS: HEMATOCRIT 18.4 % (36.0-47.0); HGB HCT DIFFERENCE 0.5; MEAN CORPUSCULAR HEMOGLOBIN 30.4 pg (27.0-33.4); MEAN CORPUSCULAR HGB CONC 34.5 g/dL (32.0-36.0); MEAN CORPUSCULAR VOLUME 88 fl (80-97); RED BLOOD COUNT 2.08 10^6/uL (3.72-5.28); RED CELL DISTRIBUTION WIDTH 13.5 % (11.5-14.0); WHITE BLOOD COUNT 8.8 10^3/uL (4.0-10.5)
[2016-11-07 07:52] LABS: HEMOGLOBIN 6.3 g/dL (12.0-15.5)
[2016-11-07] MEDS: PRENATAL VITAMIN W-O CA NO5/FE FUMARATE/FA CAPSULE PO SCH (09:28)
[2016-11-07] MEDS: SENNOSIDES/DOCUSATE 8.6-50 MG 1 EACH TABLET PO SCH (09:28)
[2016-11-07] MEDS: FAMOTIDINE 20 MG TABLET PO SCH (09:29)
[2016-11-07] MEDS: DOCUSATE SODIUM 100 MG CAPSULE PO SCH (09:29)
[2016-11-07] MEDS: FERROUS SULFATE 325 MG TABLET PO SCH (09:30)
[2016-11-07] MEDS ORDERED: ASCORBIC ACID 500 MG TABLET PO SCH (10:00)
[2016-11-07] MEDS ORDERED: FERROUS SULFATE 325 MG TABLET PO SCH (10:00)
[2016-11-07 12:17] VITALS: BP 134/65
--- NOTE | 2016-11-07 12:19 | PDOC DISCHARGE SUMMARY ---
Final Diagnosis Discharge Date: 11/07/16 - Final Diagnosis (1) Vaginal delivery Is this a current diagnosis for this admission?: Yes (2) Vaginal laceration Is this a current diagnosis for this admission?: Yes (3) Acute blood loss anemia Is this a current diagnosis for this admission?: Yes (4) hemorrhage Is this a current diagnosis for this admission?: Yes Discharge Data - Discharge Medication Home Medications: Ule040/Iron Fumarate/FA/Dss [ 19 Tablet] 1 each PO BID 10/23/16 Acetaminophen with Codeine [Tylenol #3 Tablet] 2 each PO Q4HP PRN #20 tablet 12/21 Ascorbic Acid [Vitamin C 500 mg Tablet] 500 mg PO TID #30 tablet 11/07/16 Docusate Sodium [Colace 100 mg Capsule] 100 mg PO BID #60 capsule 11/07/16 Ferrous Sulfate [Feosol 325 mg Tablet] 325 mg PO TID #90 tablet 11/07/16 Ibuprofen [Motrin 800 mg Tablet] 800 mg PO Q8 #0 tablet 11/07/16 Gestational Age: 41 Reason(s) for Admission: Induction of Labor Procedures: NST Intrapartum Procedure(s): Spontaneous Vaginal Delivery Complication(s): Laceration-Periurethral, Hemorrhage-Uterine Atony - Data Baby 1 Female at 1 minute: 9 at 5 minutes: 9 Weight: 3005 kg Home with Mother: Yes Complications: No - Diagnosis Test Laboratory: Temp Pulse Resp BP Pulse Ox 97.9 F 110 H 16 134/65 H 100 11/07/16 11:15 11/07/16 11:15 11/07/16 11:15 11/07/16 11:15 11/07/16 11:15 11/05/16 11/05/16 11/06/16 09:20 09:36 07:12 RBC 4.00 2.47 L Hgb 12.0 7.4 L D Hct 35.2 L 22.0 L Urine Opiates Screen NEGATIVE 11/07/16 07:02 RBC 2.08 L Hgb 6.3 L Hct 18.4 L Urine Opiates Screen - Discharge information/Instructions Discharge Activity: Activity As Tolerated, No Lifting Over 10 Pounds, Pelvic Rest, No tub bath Discharge Diet: Regular Disposition: HOME, SELF-CARE Follow up with: [facility] in: 1, Weeks
== END 2016-11-07 13:29 | disposition home or self-care (01) | DRG 774 ==
LOC: LR 11-05 09:06 → 2S 11-06 00:30
PROVIDERS: ADMIT Obstetrics & Gynecology; ATTEND Obstetrics & Gynecology
PROC: 10E0XZZ Delivery of Products of Conception, External Approach (ICD-10-PCS; principal; 2016-11-05)
PROC: 0UQMXZZ Repair Vulva, External Approach (ICD-10-PCS; 2016-11-05)
PROC: 3E0P7GC Introduction of Other Therapeutic Substance into Female Reproductive, Via Natural or Artificial Opening (ICD-10-PCS; 2016-11-05)
PROC: 4A1HXCZ Monitoring of Products of Conception, Cardiac Rate, External Approach (ICD-10-PCS; 2016-11-05)
DX: O48.0 Post-term pregnancy (principal); O72.2 Delayed and secondary postpartum hemorrhage; D62 Acute posthemorrhagic anemia; O99.02 Anemia complicating childbirth; O71.82 Other specified trauma to perineum and vulva; O62.3 Precipitate labor; Z87.891 Personal history of nicotine dependence; Z28.21 Immunization not carried out because of patient refusal; Z3A.41 41 weeks gestation of pregnancy; Z37.0 Single live birth
CPT/HCPCS: 36415; 80307; 81005; 85025; 85027; 86592; 86850; 86900; 86901; 90715; 940; J0330; J0690; J2210; J2250; J2270; J2590; J2704; J3010; J3490; J7120

== ENCOUNTER 2019-09-29 09:32 | Outpatient (CLI) | payer MEDICAID ==
--- NOTE | 2019-09-29 10:25 | Non Stress Test Report ---
Non Stress Test Datetime Report Generated by CPN: 09/29/2019 10:25 DEMOGRAPHIC EGA NST: 40.3 INDICATION Indication for Study (NST) Other: IUP @ 40.3 VITAL SIGNS Temperature - NST: 97.8 Pulse - NST: 82 RESP - NST: 16 NBPSYS NST: 136 NBPDIA NST: 91 MONITORING Monitor Explained: Monitor Explained; Test Explained; Patient Verbalized Understanding Time on Monitor: 09/29/2019 09:41 Time off Monitor: 09/29/2019 10:23 NST Duration: 42 NST INTERVENTIONS NST Interventions: PO Hydration; Reposition Patient Physician Notified NST: Dr. Franklin BABY A: [id number] BABY A Contraction Frequency : 0/denies FHR Baseline : 125 Accelerations : 15X15 Decelerations : None Variability : Moderate 6-25bpm NST Review: Meets Criteria for Reactive NST NST Review and Verified By : Shirley Mau RNC NST Results: Reactive NST REPORT Report Trigger: Send Report
== END 2019-09-29 10:31 | disposition home or self-care (01) ==
LOC: LC 09:32
PROVIDERS: ATTEND Student in an Organized Health Care Education/Training Program
PROC: 4A1HXCZ Monitoring of Products of Conception, Cardiac Rate, External Approach (ICD-10-PCS; principal; 2019-09-29)
DX: Z34.93 Encounter for supervision of normal pregnancy, unspecified, third trimester (principal)
CPT/HCPCS: 59025

== ENCOUNTER 2019-10-03 00:30 | Inpatient (IN) | payer MEDICAID ==
[2019-10-03] MEDS ORDERED: RINGERS SOLUTION,LACTATED 1,000 ML IV PRN (01:21)
[2019-10-03] MEDS ORDERED: MISOPROSTOL 0.2 MG TABLET ONE (01:24)
[2019-10-03] MEDS ORDERED: OXYTOCIN/NORMAL SALINE 0 UNIT/0 ML RTUINJ ONE (01:24)
[2019-10-03] MEDS ORDERED: LIDOCAINE 1% INJ-PF (10 MG/ML) 30 ML SDV ONE (01:24)
[2019-10-03] MEDS ORDERED: OXYTOCIN 10 UNIT/ML VIAL ONE (01:24)
--- NOTE | 2019-10-03 01:43 | Admission Physical ---
Datetime Report Generated by CPN: 10/03/2019 01:43 CURRENT ADMISSION Chief Complaint: Uterine Contractions Indication for Induction: Not Applicable Admit Impression : Term, Intrauterine Admit Plan: Admit to Unit; Initiate Labor Protocol ALLERGIES Medication Allergies: No Medication Allergies: No Known Allergies (03/10/2016) Latex: No Latex Allergies Food Allergies: no Environmental Allergies: no OBSTETRICAL HISTORY EDC: 09/26/2019 00:00 : 2 Para: 1 Term: 1 : 0 SAB: 0 IAB: 0 Livin Gestational Diabetes: No Rh Sensitization: No Incompetent Cervix: No IAN: No Infertility: No ART Treatment: No Uterine Anomaly: No IUGR: No Hx Previous C/S: No Macrosomia: No Hx Loss/Stillborn: No PIH: No Hx : No Placenta Previa/Abruption: No Depression/PP Depression: No PTL/PROM: No Post Hemorrhage: Yes Current Procedures: Ultrasound Obstetrical History Comments: first was twins in the first trimester// blood after last delivery and had surgery SEE RECORDS Alcohol: No Marijuana : No Cocaine: No Other Illicit Drugs: No Cigarettes: Former Smoker. [id number] MEDICAL HISTORY Diabetes: No Blood Transfusion: No Pulmonary Disease (Asthma, TB): No Breast Disease: No Hypertension: No Cage Maker Machine Surgery: No Heart Disease: No Hosp/Surgery: Yes Autoimmune Disorder: No Anesthetic Complications: No Kidney Disease: No Abnormal Pap Smear: No Neuro/Epilepsy: No Psychiatric Disorders: No Other Medical Diseases: No Hepatitis/Liver Disease: No Significant Family History: No Varicosities/Phlebitis: No Trauma/Violence : No Thyroid Dysfunction: No INFECTIOUS HISTORY Gonorrhea: No Genital Herpes: No Chlamydia: No Tuberculosis: No Syphilis: No Hepatitis: No HIV/AIDS Exposure: No Rash or Viral Illness: No HPV: No PHYSICAL EXAM General: Normal HEENT: Normal Neurologic: Normal Thyroid: Normal Heart: Normal Lungs: Normal Breast: Deferred Back: Normal Abdomen: Normal Genitourinary Exam: Normal Extremities: Normal DTRs: Normal Pelvic Type: Adequate Vital Signs: Reviewed VAGINAL EXAM Dilatation: 10 Effacement: 100 Station: 3 MEMBRANES Pooling: Positive Membranes: Ruptured FETUS A EGA: 41.0 Monitoring: External US FHR- Baseline: 120 Variability: Moderate 6-25bpm Decelerations: None FHR Category: Category I Presentation: Vertex Admit Comment: Pt delivered PLANS FOR LABOR AND DELIVERY Labor and Delivery: None Pain Management: Natural Feeding Preference: Breast Benefit of Breast Feed Discussed: Yes Circumcision: Yes INFORMED CONSENT Signature: with User ID: [email or web address]
[2019-10-03] MEDS ORDERED: MAGNESIUM HYDROXIDE SUSP 30 ML UDCUP PO PRN (01:49)
[2019-10-03] MEDS ORDERED: DIBUCAINE 1% OINTMENT 28 GM TP PRN (01:49)
[2019-10-03] MEDS ORDERED: NA PHOS,M-B/NA PHOS,DI-BA (ADULT) 133 ML ENEMA PR PRN (01:49)
[2019-10-03] MEDS ORDERED: ACETAMINOPHEN 650 MG SUPP.RECT PR PRN (01:49)
[2019-10-03] MEDS ORDERED: DIPHENHYDRAMINE HCL 25 MG CAPSULE PO PRN (01:49)
[2019-10-03] MEDS ORDERED: PROMETHAZINE HCL 25 MG TABLET PO PRN (01:49)
[2019-10-03] MEDS ORDERED: MEASLES,MUMPS&RUBELLA VACC/PF 0.5 ML VIAL SUBCUT PRN (01:49)
[2019-10-03] MEDS ORDERED: PROMETHAZINE HCL 25 MG SUPP.RECT PR PRN (01:49)
[2019-10-03] MEDS ORDERED: ZOLPIDEM TARTRATE 5 MG TABLET PO PRN (01:49)
[2019-10-03] MEDS ORDERED: PROMETHAZINE HCL INJ 25 MG/1 ML VIAL IV PRN (01:49)
[2019-10-03] MEDS ORDERED: BENZOCAINE/MENTHOL AEROSOL SPRAY 56 ML TOP PRN (01:49)
[2019-10-03] MEDS ORDERED: DIPH/PERTUSS(ACELL)/TETANUS VAC/PF 0.5 ML SYR (>=10YO) IM PRN (01:49)
[2019-10-03] MEDS ORDERED: OXYTOCIN/NORMAL SALINE 20 UNIT/1,000 ML RTUINJ IV PRN (01:49)
[2019-10-03] MEDS ORDERED: ACETAMINOPHEN WITH CODEINE #3 TABLET PO PRN ×2 (01:49)
[2019-10-03] MEDS ORDERED: GLYCERIN/WITCH HAZEL LEAF 1 EACH MED..WIPE TP PRN (01:49)
[2019-10-03] MEDS ORDERED: PSEUDOEPHEDRINE HCL 30 MG TABLET PO PRN (01:49)
[2019-10-03 01:58] LABS: APPEARANCE,URINE CLEAR; BILIRUBIN,URINE NEGATIVE (NEGATIVE); COLOR,URINE YELLOW; GLUCOSE, URINE NEGATIVE (NEGATIVE); KETONES,URINE 20 mg/dL (NEGATIVE); LEUKOCYTE ESTERASE,URINE NEGATIVE (NEGATIVE); NITRITE,URINE NEGATIVE (NEGATIVE); PROTEIN,URINE 30 mg/dL (NEGATIVE); URINE SPECIFIC GRAVITY 1.019; UROBILINOGEN,URINE NEGATIVE mg/dL (<2.0)
[2019-10-03 02:24] LABS: URINE AMPHETAMINES SCREEN NEGATIVE; URINE BARBITURATES SCREEN NEGATIVE; URINE BENZODIAZEPINES SCREEN NEGATIVE; URINE COCAINE SCREEN NEGATIVE; URINE MARIJUANA (THC) SCREEN NEGATIVE; URINE METHADONE SCREEN NEGATIVE; URINE PHENCYCLIDINE SCREEN NEGATIVE
[2019-10-03] MEDS ORDERED: IBUPROFEN 800 MG TABLET ONE (02:29)
[2019-10-03] MEDS ORDERED: ACETAMINOPHEN WITH CODEINE #3 TABLET ONE (02:29)
[2019-10-03 03:15] LABS: ABSOLUTE LYMPHOCYTES (AUTO) 0.8 10^3/uL (0.5-4.7); ABSOLUTE MONOCYTES (AUTO) 0.5 10^3/uL (0.1-1.4); ABSOLUTE NEUT (AUTO) 9.5 10^3/uL (1.7-8.2); BASOPHILS % (AUTO) 0.3 % (0-2); EOSINOPHILS % (AUTO) 0.1 % (0-6); HEMATOCRIT 35.9 % (36.0-47.0); HEMOGLOBIN 12.2 g/dL (12.0-15.5); LYMPHOCYTES % (AUTO) 7.3 % (13-45); MEAN CORPUSCULAR HEMOGLOBIN 29.4 pg (27.0-33.4); MEAN CORPUSCULAR HGB CONC 34.1 g/dL (32.0-36.0); MEAN CORPUSCULAR VOLUME 86 fl (80-97); MONOCYTES % (AUTO) 4.8 % (3-13); RED BLOOD COUNT 4.17 10^6/uL (3.72-5.28); RED CELL DISTRIBUTION WIDTH 13.4 % (11.5-14.0); SEGMENTED NEUTROPHILS % (AUTO) 87.5 % (42-78); TOTAL CELLS COUNTED % (AUTO) 100 %; WHITE BLOOD COUNT 10.8 10^3/uL (4.0-10.5)
[2019-10-03 03:42] LABS: PLATELET COUNT 91 10^3/uL (150-450)
--- NOTE | 2019-10-03 04:07 | Delivery Summary ---
Del Sum A-C Datetime Report Generated by CPN: 10/03/2019 04:06 DELIVERY PERSONNEL DELIVERY PERSONNEL: [id number] Delivery Doctor:: Tushar Kenyon MD Labor and Delivery Nurse:: Lorrie Zee, RNC Labor and Delivery Nurse:: Tahmina Gordon, RN MATERNAL INFORMATION Delivery Anesthesia: None Medications After Delivery: Pitocin 10 Units IM Estimated Blood Loss (ml): 250 Delivery QBL: 210 Maternal Complications: Precipitous Labor (<3hrs) LABOR SUMMARY EDC: 09/26/2019 00:00 No. Babies in Womb: 1 Attempted: No Labor Anesthesia: None LABOR INFORMATION Reason for Induction: Not Applicable Onset of Labor: 10/02/2019 23:00 Complete Dilatation: 10/03/2019 01:25 Oxytocin: N/A Group B Beta Strep: negative Antibiotics # of Doses: n/a Steroids Given: None Reason Steroids Not Administered: Not Applicable MEMBRANES Membranes Rupture Method: Spontaneous Rupture of Membranes: 10/03/2019 01:25 Length of Rupture (hr): 0.03 Amniotic Fluid Color: Clear Amniotic Fluid Amount: Moderate Amniotic Fluid Odor: Normal STAGES OF LABOR Stage 1 hr: 2 Stage 1 min: 25 Stage 2 hr: 0 Stage 2 min: 2 Stage 3 hr: 0 Stage 3 min: 4 Total Time in Labor hr: 2 Total Time in Labor min: 31 VAGINAL DELIVERY Episiotomy: None Laceration #1: None; Vaginal Laceration Extension #1: First Degree Laceration #2: None Laceration Extension #2: N/A Laceration #3: None Laceration Extension #3: N/A Other Laceration: labial Laceration Repair: Yes Laceration Repair Note: repair with 3-0 chromic suture. Old obstetric laceration at left labia Sponge Count Correct: Vaginal Sweep Performed Sharps Count Correct: Yes CSECTION DELIVERY Primary Indication: N/A Secondary Indication: N/A CSection Incidence: N/A Labor: N/A Elective: N/A CSection Incision: N/A BABY A INFORMATION Delivery Date/Time: 10/03/2019 01:27 Method of Delivery: Vaginal Born in Route : No : N/A Forceps: N/A Vacuum Extraction: N/A Shoulder Dystocia : No PRESENTATION/POSITION BABY A Presentation: Cephalic Cephalic Presentation: Vertex Vertex Position: Left Occipital Anterior Breech Presentation: N/A PLACENTA INFORMATION BABY A Placenta Delivery Time : 10/03/2019 01:31 Placenta Method of Delivery: Spontaneous Placenta Status: Delivered SCORES BABY A Heart Rate 1 min: >100 bpm Resp Effort 1 min: Good Cry Reflex Irritability 1 min: Cough or Sneeze or Pulls Away Muscle Tone 1 min: Active Motion Color 1 min: Blue/Pale Resuscitation Effort 1 min: Tactile Stimulation SCORE 1 MIN: 8 Heart Rate 5 min: >100 bpm Resp Effort 5 min: Good Cry Reflex Irritability 5 min: Cough or Sneeze or Pulls Away Muscle Tone 5 min: Active Motion Color 5 min: Body [place], Extremities Blue Resuscitation Effort 5 min: Tactile Stimulation SCORE 5 MIN: 9 INFANT INFORMATION BABY A Gestational Age at Delivery: 41.0 Gestational Status: Late Term- 41- 41.6 Weeks Infant Outcome : Liveborn Infant Condition : Stable Infant Sex: Male IDENTIFICATION BABY A Verification Date/Time: 09/26/2019 01:56 ID Band Number: [id number] Mother's Name Verified: Yes RN Verifying : S Ramos [employer] ANALYST/D [employer] RN WEIGHT/LENGTH BABY A Birthweight (gm): 3033 Weight (lb): 6 Infant Weight (oz): 11 Length (in): 20.00 Length (cm): 50.80 CORD INFORMATION BABY A No. 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
[2019-10-03] MEDS ORDERED: INFLUENZA QUAD (6MOS+) 2019-20 VAC 0.5 ML SYR IM ONE (05:02)
[2019-10-03] MEDS: IBUPROFEN 800 MG TABLET PO SCH ×3 (08:26→22:47)
[2019-10-03] MEDS: PRENATAL VITAMIN W DHA CAPSULE PO SCH ×2 (10:03→14:47)
[2019-10-03] MEDS: FERROUS SULFATE 325 MG TABLET PO SCH ×2 (10:03→17:43)
[2019-10-03] MEDS: DOCUSATE SODIUM 100 MG CAPSULE PO SCH ×3 (10:03→17:43)
[2019-10-03] MEDS: SENNOSIDES/DOCUSATE 8.6-50 MG 1 EACH TABLET PO SCH (10:03)
[2019-10-03] MEDS: FAMOTIDINE 20 MG TABLET PO SCH ×2 (10:04→22:47)
--- NOTE | 2019-10-03 10:39 | PDOC PROGRESS REPORT ---
Subjective-OB Progress Note for:: 10/03/19 Subjective: Doing well, no c/o, , family at BS, scant lochia Physical Exam (OB) Vital Signs: Temp Pulse Resp BP Pulse Ox 97.5 F 58 L 16 137/88 H 100 10/03/19 07:32 10/03/19 07:32 10/03/19 07:32 10/03/19 07:32 10/03/19 07:32 Intake & Output 10/02/19 10/03/19 10/04/19 06:59 06:59 06:59 Weight 83.9 kg - PIH/Pre-Eclampsia Headache: Absent Epigastric Pain: No Visual Changes: No - Lochia Lochia Amount: Small 10-25 ml Lochia Color: Rubra/Red - Abdomen Description: Soft Hernia Present: No Fundal Description: Firm, Midline Fundal Height: u/u - u/2 Objective-Diagnostic Laboratory: 10/03/19 02:23 10/03/19 10/03/19 10/03/19 00:45 02:23 02:23 WBC 10.8 H RBC 4.17 Hgb 12.2 Hct 35.9 L MCV 86 MCH 29.4 MCHC 34.1 RDW 13.4 Plt Count 91 L Seg Neutrophils % 87.5 H Urine Color YELLOW Urine Appearance CLEAR Urine pH 6.0 Ur Specific [place] 1.019 Urine Protein 30 H Urine Glucose (UA) NEGATIVE Urine Ketones 20 H Urine Blood NEGATIVE Urine Nitrite NEGATIVE Ur Leukocyte Esterase NEGATIVE Blood Type O POSITIVE Antibody Screen NEGATIVE Assessment and Plan(PN) - Assessment and Plan (1) Vaginal delivery Is this a current diagnosis for this admission?: Yes (2) Vaginal laceration Qualifiers: Vaginal laceration type: obstetric Perineal laceration presence: with perineal laceration Perineal laceration degree: first degree Qualified Code(s): O70.0 - First degree perineal laceration during delivery Is this a current diagnosis for this admission?: Yes (3) Acute blood loss anemia Is this a current diagnosis for this admission?: Yes (4) hemorrhage Qualifiers: hemorrhage type: unspecified Qualified Code(s): O72.1 - Other immediate hemorrhage Is this a current diagnosis for this admission?: Yes - Time Spent with Patient Time with patient: Less than 15 minutes Medications reviewed and adjusted accordingly: Yes - Disposition Anticipated Discharge: Home Within: within 24 hours
[2019-10-04] MEDS: IBUPROFEN 800 MG TABLET PO SCH ×3 (06:22→22:11)
[2019-10-04 07:07] LABS: HEMATOCRIT 32.9 % (36.0-47.0); HEMOGLOBIN 11.4 g/dL (12.0-15.5); MEAN CORPUSCULAR HEMOGLOBIN 30.1 pg (27.0-33.4); MEAN CORPUSCULAR HGB CONC 34.6 g/dL (32.0-36.0); MEAN CORPUSCULAR VOLUME 87 fl (80-97); PLATELET COUNT 111 10^3/uL (150-450); RED BLOOD COUNT 3.78 10^6/uL (3.72-5.28); RED CELL DISTRIBUTION WIDTH 13.4 % (11.5-14.0); WHITE BLOOD COUNT 7.7 10^3/uL (4.0-10.5)
--- NOTE | 2019-10-04 10:11 | PDOC PROGRESS REPORT ---
Subjective-OB Progress Note for:: 10/04/19 - PP day #1, doing well, UOB voiding, O+, rubella Immune, Hx low PLts on admission Physical Exam (OB) Vital Signs: Temp Pulse Resp BP Pulse Ox 97.8 F 58 L 16 130/85 H 98 10/04/19 07:34 10/04/19 07:34 10/04/19 07:34 10/04/19 07:34 10/04/19 07:34 Intake & Output 10/03/19 10/04/19 10/05/19 06:59 06:59 06:59 Weight 83.9 kg - General General Appearance: Appears well, Alert In distress: None - PIH/Pre-Eclampsia Headache: Absent Epigastric Pain: No Visual Changes: No - Lochia Lochia Amount: Scant < 10 ml Lochia Color: Rubra/Red - Abdomen Description: Soft, Flat Hernia Present: No Fundal Description: Firm, Midline Fundal Height: u/u - u/2 - Respiratory Respiratory Status: No respiratory distress - Abdominal Distension: No distension Tenderness: Nontender - Genitourinary Genitourinary Note: voiding - Extremities Upper extremity: Normal inspection Lower extremities: Normal inspection Objective-Diagnostic Laboratory: 10/04/19 06:55 10/04/19 06:55 WBC 7.7 RBC 3.78 Hgb 11.4 L Hct 32.9 L MCV 87 MCH 30.1 MCHC 34.6 RDW 13.4 Plt Count 111 L Assessment and Plan(PN) - Assessment and Plan (1) Gestational thrombocytopenia Qualifiers: Trimester: third trimester Qualified Code(s): O99.113 - Other diseases of the blood and blood-forming organs and certain disorders involving the immune mechanism complicating , third trimester; D69.6 - Thrombocytopenia, unspecified Is this a current diagnosis for this admission?: Yes (2) Acute blood loss anemia Is this a current diagnosis for this admission?: Yes (3) hemorrhage Qualifiers: hemorrhage type: unspecified Qualified Code(s): O72.1 - Other immediate hemorrhage Is this a current diagnosis for this admission?: Yes (4) Vaginal delivery Is this a current diagnosis for this admission?: Yes (5) Vaginal laceration Qualifiers: Vaginal laceration type: obstetric Perineal laceration presence: with perineal laceration Perineal laceration degree: first degree Qualified Code(s): O70.0 - First degree perineal laceration during delivery Is this a current diagnosis for this admission?: Yes Plan:: watch PP bleeding, ambulation encouraged, Routine PP orders - Time Spent with Patient Time with patient: Less than 15 minutes Medications reviewed and adjusted accordingly: Yes - Disposition Anticipated Discharge: Home Within: within 24 hours
[2019-10-04] MEDS: DOCUSATE SODIUM 100 MG CAPSULE PO SCH ×2 (10:43→18:36)
[2019-10-04] MEDS: FERROUS SULFATE 325 MG TABLET PO SCH ×2 (10:43→18:36)
[2019-10-04] MEDS: PRENATAL VITAMIN W DHA CAPSULE PO SCH (10:44)
[2019-10-04] MEDS: FAMOTIDINE 20 MG TABLET PO SCH ×2 (10:44→22:11)
[2019-10-04] MEDS: SENNOSIDES/DOCUSATE 8.6-50 MG 1 EACH TABLET PO SCH (10:49)
[2019-10-05] MEDS: IBUPROFEN 800 MG TABLET PO SCH (05:37)
--- NOTE | 2019-10-05 10:07 | PDOC DISCHARGE SUMMARY ---
Impression - Admit/DC Date/PCP Admission Date/Primary Care Provider: 10/03/19 01:16 JOSÉ MIGUEL CAMILO MD Discharge Date: 10/05/19 - Discharge Diagnosis (1) Gestational thrombocytopenia Is this a current diagnosis for this admission?: Yes (2) Acute blood loss anemia Is this a current diagnosis for this admission?: Yes (3) Vaginal delivery Is this a current diagnosis for this admission?: Yes - Additional Information Resuscitation Status: Full Code Discharge Diet: Regular Discharge Activity: Balance Activity w/Rest, Pelvic Rest Referrals: [facility] [Provider Group] Prescriptions: Ibuprofen [Motrin 800 mg Tablet] 800 mg PO Q8HP PRN #60 tablet PRN Reason: pain scale of 2 Home Medications: Prenat 115/Iron Fum/Folic/Dss [ 19 Tablet] 1 each PO BID 10/23/16 Ibuprofen [Motrin 800 mg Tablet] 800 mg PO Q8HP PRN #60 tablet 10/05/19 Results Laboratory Results: WBC 7.7 10^3/uL (4.0-10.5) 10/04/19 06:55 RBC 3.78 10^6/uL (3.72-5.28) 10/04/19 06:55 Hgb 11.4 g/dL (12.0-15.5) L 10/04/19 06:55 Hct 32.9 % (36.0-47.0) L 10/04/19 06:55 MCV 87 fl (80-97) 10/04/19 06:55 MCH 30.1 pg (27.0-33.4) 10/04/19 06:55 MCHC 34.6 g/dL (32.0-36.0) 10/04/19 06:55 RDW 13.4 % (11.5-14.0) 10/04/19 06:55 Plt Count 111 10^3/uL (150-450) L 10/04/19 06:55 Lymph % (Auto) 7.3 % (13-45) L 10/03/19 02:23 Frontier % (Auto) 4.8 % (3-13) 10/03/19 02:23 Eos % (Auto) 0.1 % (0-6) 10/03/19 02:23 Baso % (Auto) 0.3 % (0-2) 10/03/19 02:23 Absolute Neuts (auto) 9.5 10^3/uL (1.7-8.2) H 10/03/19 02:23 Absolute Lymphs (auto) 0.8 10^3/uL (0.5-4.7) 10/03/19 02:23 Absolute Monos (auto) 0.5 10^3/uL (0.1-1.4) 10/03/19 02:23 Absolute Eos (auto) 0.0 10^3/uL (0.0-0.6) 10/03/19 02:23 Absolute Basos (auto) 0.0 10^3/uL (0.0-0.2) 10/03/19 02:23 Seg Neutrophils % 87.5 % (42-78) H 10/03/19 02:23 Urine Color YELLOW 10/03/19 00:45 Urine Appearance CLEAR 10/03/19 00:45 Urine pH 6.0 (5.0-9.0) 10/03/19 00:45 Ur Specific [place] 1.019 10/03/19 00:45 Urine Protein 30 mg/dL (NEGATIVE) H 10/03/19 00:45 Urine Glucose (UA) NEGATIVE mg/dL (NEGATIVE) 10/03/19 00:45 Urine Ketones 20 mg/dL (NEGATIVE) H 10/03/19 00:45 Urine Blood NEGATIVE (NEGATIVE) 10/03/19 00:45 Urine Nitrite NEGATIVE (NEGATIVE) 10/03/19 00:45 Urine Bilirubin NEGATIVE (NEGATIVE) 10/03/19 00:45 Urine Urobilinogen NEGATIVE mg/dL (<2.0) 10/03/19 00:45 Ur Leukocyte Esterase NEGATIVE (NEGATIVE) 10/03/19 00:45 Urine Ascorbic Acid 40 (NEGATIVE) H 10/03/19 00:45 Urine Opiates Screen NEGATIVE 10/03/19 00:45 Urine Methadone Screen NEGATIVE 10/03/19 00:45 Ur Barbiturates Screen NEGATIVE 10/03/19 00:45 Ur Phencyclidine Scrn NEGATIVE 10/03/19 00:45 Ur Amphetamines Screen NEGATIVE 10/03/19 00:45 U Benzodiazepines Scrn NEGATIVE 10/03/19 00:45 Urine Cocaine Screen NEGATIVE 10/03/19 00:45 U Marijuana (THC) Screen NEGATIVE 10/03/19 00:45 RPR NONREACTIVE (NONREACTIVE) 10/03/19 02:23 Blood Type O POSITIVE 10/03/19 02:23 Antibody Screen NEGATIVE 10/03/19 02:23
[2019-10-05] MEDS: PRENATAL VITAMIN W DHA CAPSULE PO SCH (10:19)
[2019-10-05] MEDS: FAMOTIDINE 20 MG TABLET PO SCH (10:19)
[2019-10-05] MEDS: DOCUSATE SODIUM 100 MG CAPSULE PO SCH (10:19)
[2019-10-05] MEDS: FERROUS SULFATE 325 MG TABLET PO SCH (10:20)
[2019-10-05] MEDS: SENNOSIDES/DOCUSATE 8.6-50 MG 1 EACH TABLET PO SCH (10:29)
[2019-10-05 10:54] VITALS: BP 131/78
== END 2019-10-05 14:15 | disposition home or self-care (01) | DRG 806 ==
LOC: LC 00:30 → LR 01:16 → 2S 04:25
PROVIDERS: ADMIT Obstetrics & Gynecology; ATTEND Obstetrics & Gynecology
PROC: 10E0XZZ Delivery of Products of Conception, External Approach (ICD-10-PCS; principal; 2019-10-03)
PROC: 0HQ9XZZ Repair Perineum Skin, External Approach (ICD-10-PCS; 2019-10-03)
PROC: 3E02340 Introduction of Influenza Vaccine into Muscle, Percutaneous Approach (ICD-10-PCS; 2019-10-05)
PROC: 3E0134Z Introduction of Serum, Toxoid and Vaccine into Subcutaneous Tissue, Percutaneous Approach (ICD-10-PCS; 2019-10-05)
DX: O62.3 Precipitate labor (principal); O99.12 Other diseases of the blood and blood-forming organs and certain disorders involving the immune mechanism complicating childbirth; Z37.0 Single live birth; O72.1 Other immediate postpartum hemorrhage; D69.6 Thrombocytopenia, unspecified; O70.0 First degree perineal laceration during delivery; O99.02 Anemia complicating childbirth; O67.9 Intrapartum hemorrhage, unspecified; Z3A.41 41 weeks gestation of pregnancy; Z87.891 Personal history of nicotine dependence; Z23 Encounter for immunization
CPT/HCPCS: 36415; 80307; 81005; 85025; 85027; 86592; 86850; 86900; 86901; 90686; 90707; 90715; J2590; J3490